=== PATIENT | female | born 1945 | race Caucasian/White ===

== ENCOUNTER 2016-05-07 13:55 | Outpatient (CLI) | payer MEDICARE, MEDICAID | END 2016-05-07 13:56 | disposition home or self-care (01) | DX: E11.9 Type 2 diabetes mellitus without complications (principal) ==

== ENCOUNTER 2016-10-21 11:12 | Outpatient (CLI) | payer MEDICARE, MEDICAID ==
--- NOTE | 2016-10-21 13:23 | XRAY Report ---
THREE-VIEW CERVICAL SPINE: 10/21/2016 CLINICAL INDICATION: Neck pain. FINDINGS: AP, lateral, odontoid views of the cervical spine demonstrate moderate degenerative disc a nd facet disease. There is no evidence of fracture or subluxation. The prevertebral soft tissues ar e unremarkable. IMPRESSION: MODERATE DEGENERATIVE CHANGES. JOB #: [id number] EXT JOB #:[id number]
== END 2016-10-21 11:13 | disposition home or self-care (01) ==
LOC: DI 11:12
PROVIDERS: ATTEND Family Medicine
DX: M50.30 Other cervical disc degeneration, unspecified cervical region (principal); M47.892 Other spondylosis, cervical region
CPT/HCPCS: 72040

== ENCOUNTER 2016-11-04 08:31 | Day surgery (SDC) | payer MEDICARE, MEDICAID ==
[2016-11-04] MEDS ORDERED: PHENYLEPHRINE 2.5% OPHTH 2 ML DROPS ONE (08:44)
[2016-11-04] MEDS ORDERED: LACTATED RINGERS 500 ML IV ONE (08:53)
[2016-11-04] MEDS ORDERED: CYCLOPENTOLATE 1% OPHTH DROPS 2 ML OPTH ONE (09:06)
[2016-11-04] MEDS ORDERED: PROPARACAINE 0.5% OPHTH DROPS 15 ML OPTH ONE ×2 (09:06→09:43)
[2016-11-04] MEDS ORDERED: KETOROLAC 0.45% OPHTH DROPS OPTH ONE (09:06)
[2016-11-04] MEDS ORDERED: PHENYLEPHRINE 2.5% OPHTH 2 ML DROPS OPTH ONE (09:06)
[2016-11-04] MEDS ORDERED: BRIMONIDINE 0.2% OPHTH DROPS 5 ML OPTH ONE (09:41)
[2016-11-04] MEDS ORDERED: EPINEPHrine 1 MG/ML AMP IVP ONE (09:42)
[2016-11-04] MEDS ORDERED: TRIAMCIN/MOXIFLOX/VANCO 1 ML VIAL IO ONE ×2 (09:43)
[2016-11-04] MEDS ORDERED: CHONDR SULF/HYALURONATE SYRINGE IO ONE (09:43)
[2016-11-04] MEDS ORDERED: BSS/LIDOCAINE/EPINEPHRINE 1 ML SYRINGE IO ONE ×2 (09:43)
[2016-11-04] MEDS ORDERED: TIMOLOL 0.5% OPHTH DROPS OPTH ONE (09:43)
[2016-11-04] MEDS ORDERED: MIDAZOLAM 2 MG/2 ML VIAL IVP ONE (09:50)
[2016-11-04 10:37] VITALS: BP 135/58
--- NOTE | 2016-11-06 02:56 | OPERATIVE REPORT ---
DATE OF SURGERY: 11/04/2016 00:00:00 PREOPERATIVE DIAGNOSIS: Visually significant cataract, left eye. This is her first cataract surgery . POSTOPERATIVE DIAGNOSIS: Visually significant cataract, left eye. This is her first cataract surger y. PROCEDURE: Phacoemulsification and posterior chamber intraocular lens implant, left eye. SURGEON: Bobby Nova MD ANESTHESIA: Monitored anesthesia care. COMPLICATIONS: None. OPERATIVE INDICATIONS: This is a 71-year-old woman with progressive vision loss in the left eye due to 2+ nuclear sclerotic cataract. Best corrected visual acuity was 20/50 in her left eye. Indicatio ns for surgery are overall decrease in vision, difficulty reading, difficulty with glare or bright li ghts, and she does not drive. She was consented at length concerning the risks and benefits of catara ct surgery, after which she expressed a desire to proceed with surgery. OPERATIVE PROCEDURE: The patient was taken into operating room #2 and placed under monitored anesthe roselyn care. A surgical time-out was conducted, confirming correct the patient, correct procedure, and c orrect surgical site. She was given topical anesthesia and then prepped and draped in the usual steri le fashion. The eye was entered at the 6- and 3-o'clock positions. Intracameral shugarcaine was injected into the anterior chamber, followed by Viscoat. A continuous tear curvilinear capsulorrhexis was performed. T he nucleus was hydrodissected and phacoemulsified. The cortex was evacuated using automated infusion aspiration. Provisc was injected into the capsular bag and a 21.0-diopter intraocular lens inserted i nto the bag. Approximately 0.7 mL of a mixture of triamcinolone, moxifloxacin, and vancomycin was in jected subconjunctivally in the superior quadrant for infection and inflammation prophylaxis. I/A was used to evacuate the viscoelastic materials. The eye was inflated to physiologic pressure using a ba lanced salt solution and found to be watertight. The patient was taken from the operating room in good condition and given postoperative instructions. JOB #: [id number] EXT JOB #:[id number]
== END 2016-11-04 08:32 | disposition home or self-care (01) ==
LOC: SDS 08:31
PROVIDERS: ATTEND Ophthalmology
PROC: 08RK3JZ Replacement of Left Lens with Synthetic Substitute, Percutaneous Approach (ICD-10-PCS; principal; 2016-11-04 09:30)
DX: E11.36 Type 2 diabetes mellitus with diabetic cataract (principal); H25.12 Age-related nuclear cataract, left eye; F41.9 Anxiety disorder, unspecified; J44.9 Chronic obstructive pulmonary disease, unspecified; F17.200 Nicotine dependence, unspecified, uncomplicated; F20.9 Schizophrenia, unspecified; Z79.84 Long term (current) use of oral hypoglycemic drugs
CPT/HCPCS: 66984; A9270; V2632

== ENCOUNTER 2017-05-17 08:00 | Outpatient (CLI) | payer MEDICARE, MEDICAID ==
[2017-05-17 18:57] LABS: BASOPHILS # (AUTO) 0.1 10^3/uL (0.0-0.1); BASOPHILS % (AUTO) 0.6 %; EOSINOPHILS # (AUTO) 0.1 10^3/uL (0.0-0.7); EOSINOPHILS % (AUTO) 0.6 %; HGB - HEMOGLOBIN 14.7 g/dL (12.0-16.0); LYMPHOCYTES # (AUTO) 3.1 10^3/uL (1.5-3.5); LYMPHOCYTES % (AUTO) 31.6 %; MEAN CORPUSCULAR HEMOGLOBIN 31.5 pg (27.0-31.0); MEAN CORPUSCULAR HGB CONC 33.4 g/dL (32.0-36.0); MEAN CORPUSCULAR VOLUME 94.4 fL (81.0-99.0); MEAN PLATELET VOLUME 8.8 fL (7.9-10.8); MONOCYTES # (AUTO) 0.6 10^3/uL (0.0-1.0); MONOCYTES % (AUTO) 5.7 %; NEUTROPHILS % (AUTO) 61.5 %; PLT - PLATELET COUNT 248 10^3/uL (130-450); RED BLOOD COUNT 4.67 10^6/uL (4.20-5.40); RED CELL DISTRIBUTION WIDTH 12.5 % (12.0-15.0); WHITE BLOOD COUNT 9.8 x10^3/uL (4.8-10.8)
[2017-05-17 19:12] LABS: HB2 TOTAL 15.7 g/dL; HEMOGLOBIN A1C 1.18 g/dL
[2017-05-17 19:53] LABS: ALBUMIN 4.2 g/dL (3.2-5.5); ALBUMIN/GLOBULIN RATIO 1.5 (1.0-2.2); ALKALINE PHOSPHATASE 81 IU/L (42-121); ALT ALANINE AMINOTRANSFERASE 17 IU/L (10-60); AST ASPARTATE AMINOTRANSFERASE 20 IU/L (10-42); BILIRUBIN,TOTAL 0.5 mg/dL (0.2-1.0); BUN - BLOOD UREA NITROGEN 6 mg/dL (6-20); CALCIUM 9.4 mg/dL (8.5-10.3); CARBON DIOXIDE - CO2 25 mmol/L (21-32); CHLORIDE 98 mmol/L (101-111); CHOL/HDL RATIO 3.8 (<4.4); CHOLESTEROL 169 mg/dL; CREATININE 0.6 mg/dL (0.4-1.0); GFR - MDRD 99 (>89); GLUCOSE 200 mg/dL (70-100); HDL CHOLESTEROL 45 mg/dL; LDL CHOLESTEROL,CALCULATED 84 mg/dL; LDL/HDL RATIO 1.9 (<4.4); SODIUM 137 mmol/L (135-145); VLDL CHOLESTEROL 40 mg/dL
== END 2017-05-17 08:01 | disposition home or self-care (01) ==
LOC: LAB.N 08:00
PROVIDERS: ATTEND Family Medicine
DX: E55.9 Vitamin D deficiency, unspecified (principal); F20.9 Schizophrenia, unspecified; E11.9 Type 2 diabetes mellitus without complications
CPT/HCPCS: 36415; 80053; 80061; 83036; 83721; 85025

== ENCOUNTER 2017-09-08 09:31 | Outpatient (CLI) | payer MEDICARE, MEDICAID ==
[2017-09-08 12:49] LABS: CALCIUM 9.2 mg/dL (8.5-10.3); CREATININE 0.9 mg/dL (0.4-1.0)
[2017-09-08 13:03] LABS: HEMOGLOBIN A1C 0.98 g/dL; HEMOGLOBIN A1C % 8.1 % (4.6-6.2)
== END 2017-09-08 09:32 ==
LOC: LAB.N 09:31
PROVIDERS: ATTEND Family Medicine
DX: E11.9 Type 2 diabetes mellitus without complications (principal)
CPT/HCPCS: 36415; 80048; 83036

== ENCOUNTER 2017-12-13 11:51 | Outpatient (CLI) | payer MEDICARE, MEDICAID ==
[2017-12-13 19:04] LABS: CALCIUM 8.8 mg/dL (8.5-10.3); CREATININE 0.7 mg/dL (0.4-1.0)
[2017-12-13 19:10] LABS: HB2 TOTAL 13.6 g/dL; HEMOGLOBIN A1C 0.82 g/dL; HEMOGLOBIN A1C % 7.7 % (4.6-6.2)
== END 2017-12-13 11:52 | disposition home or self-care (01) ==
LOC: LAB.N 11:51
PROVIDERS: ATTEND Family Medicine
DX: E11.9 Type 2 diabetes mellitus without complications (principal)
CPT/HCPCS: 36415; 80048; 83036

== ENCOUNTER 2018-04-21 10:37 | Outpatient (CLI) | payer MEDICARE, MEDICAID ==
[2018-04-21 19:29] LABS: CALCIUM 8.5 mg/dL (8.5-10.3); CREATININE 0.8 mg/dL (0.4-1.0)
[2018-04-21 19:57] LABS: HB2 TOTAL 15.1 g/dL; HEMOGLOBIN A1C 0.81 g/dL; HEMOGLOBIN A1C % 7.1 % (4.6-6.2)
== END 2018-04-21 23:59 | disposition home or self-care (01) ==
LOC: LAB.N 10:37
PROVIDERS: ATTEND Family Medicine
DX: E11.9 Type 2 diabetes mellitus without complications (principal)
CPT/HCPCS: 36415; 80048; 83036

== ENCOUNTER 2018-05-17 09:30 | Outpatient (CLI) | payer MEDICARE, MEDICAID ==
--- NOTE | 2018-05-18 08:41 | Mammography Report ---
Reason: SCREENING MAMMOGRAM FOR BREAST CANCER Procedure Date: 05/17/2018 Accession Number: [id number] / [id number] Procedure: MGN - Screening Mammo Dig Bilat CPT Code: FULL RESULT: EXAM: Screening Mammo Dig Bilat DATE: 05/17/2018 9:57 AM CLINICAL HISTORY: Screening encounter. History of late childbearing. TECHNIQUE: Bilateral CC and MLO views were obtained. COMPARISON: 10/04/2014 07/19/2008. FINDINGS: The breasts demonstrate scattered fibroglandular densities bilaterally. There are coarse typically benign calcifications. No suspicious masses, clustered microcalcifications, or regions of architectural distortion are identified. IMPRESSION: Benign findings RECOMMENDATION: Routine annual screening unless otherwise clinically indicated. BIRADS CATEGORY 2: Benign findings STANDARD QUALIFYING STATEMENTS: 1. This examination was reviewed with the aid of Computer-Aided Detection (CAD). 2. A negative or benign imaging report should not preclude biopsy if clinically suspicious findings are present. 3. Dense breasts may obscure an underlying neoplasm. 4. This examination was reviewed without the aid of 3D breast imaging (tomosynthesis).
== END 2018-05-17 09:31 | disposition home or self-care (01) ==
LOC: DI.N 09:30
PROVIDERS: ATTEND Family Medicine
DX: Z12.31 Encounter for screening mammogram for malignant neoplasm of breast (principal)
CPT/HCPCS: 77067

== ENCOUNTER 2018-09-30 09:37 | Emergency (ER) | payer MEDICARE, MEDICAID ==
--- NOTE | 2018-09-30 10:28 | ED Physician Documentation ---
PD HPI FEMALE - Stated complaint Stated Complaint: FEMALE - Chief complaint Chief Complaint: General - History obtained from History obtained from: Patient - History of Present Illness Timing - onset: How many weeks ago (3) Timing - duration: Weeks (3) Timing - details: Gradual onset, Still present Associated symptoms: Dysuria, Urinary frequency, Other (vaginal itching) Similar symptoms before: Has not had sx before Recently seen: Clinic - Additional information Additional information: 73 y/o female with weeks of vaginal itching complains of vaginal itching and small bumps in the skin. She has some urinary symptoms as well. 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 : None HEENT: Other Psych: Schizophrenia Musculoskeletal: None Derm: None - Past Surgical History Past Surgical History: Yes /WORK ORDER SORTING CLERK: Hysterectomy - Present Medications Home Medications: Ambulatory Orders Medication Instructions Recorded Confirmed Lisinopril 5 mg PO DAILY 01/19/16 09/30/18 Metformin HCl [Fortamet] 500 mg PO BID 01/19/16 09/30/18 clonazePAM [Clonazepam] 0.5 mg PO PRN PRN 01/19/16 09/30/18 risperiDONE [RisperDAL] 4 mg PO DAILY 01/19/16 09/30/18 Fluconazole [Diflucan] 150 mg PO ONCE #1 tablet 09/30/18 - Allergies Allergies/Adverse Reactions: Allergies Allergy/AdvReac Type Severity Reaction Status Date / Time No Known Drug Allergies Allergy Verified 09/30/18 09:44 - Social History Does the pt smoke?: Yes Smoking Status: Current every day smoker Does the pt drink ETOH?: No Does the pt have substance abuse?: No - Immunizations Immunizations are current?: Yes - POLST Patient has POLST: No PD ED PE NORMAL - Vitals Vital signs reviewed: Yes (tachy and hypertensive ) - General General: No acute distress, Well developed/nourished - HEENT HEENT: Atraumatic, Other (The left eye is deviated laterally ) - Respiratory Respiratory: No respiratory distress - Female Female : Budget 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 There is no discharge. There are no blisters or pustules. The hair follicles are prominent. ) - Derm Derm: Normal color, Warm and dry, No rash - Extremities Extremities: No deformity, No edema - Neuro Neuro: No motor deficit, No sensory deficit, Normal speech Eye Opening: Spontaneous Motor: Obeys Commands Verbal: Oriented GCS Score: 15 - Psych Psych: Normal mood, Normal affect Results - Vitals Vitals: Vital Signs - 24 hr 09/30/18 09/30/18 09/30/18 09:42 11:35 11:38 Temperature 37.1 C 36.8 C Heart Rate 109 H 86 80 Respiratory 18 16 24 Rate Blood Pressure 145/68 H 135/63 H 136/68 H O2 Saturation 98 100 96 Oxygen O2 Source Room air - Labs Labs: Microbiology 09/30/18 10:20 LEIGH Preparation - Final Other - Vaginal Laboratory Tests 09/30/18 10:37 Urine Color YELLOW Urine Clarity CLEAR Urine pH 5.0 Ur Specific [place] <=1.005 Urine Protein NEGATIVE Urine Glucose (UA) NEGATIVE Urine Ketones NEGATIVE Urine Occult Blood NEGATIVE Urine Nitrite NEGATIVE Urine Bilirubin NEGATIVE Urine Urobilinogen 0.2 (NORMAL) Ur Leukocyte Esterase NEGATIVE Ur Microscopic Review NOT INDICATED Urine Culture Comments NOT INDICATED PD MEDICAL DECISION MAKING - ED course Complexity details: reviewed results, re-evaluated patient, considered d ifferential, d/w patient ED course: 73 y/o female schizophrenic with vaginal itching has enough itching that she has scratched a christiano on the vulva. She has negative swab of the area. Her presentation is consistent with yeast vaginitis and she is treated with a single dose of diflucan. Departure - Departure Disposition: 01 Home, Self Care Clinical Impression: Yeast vaginitis Condition: Stable Instructions: ED Vaginal Infec Fungal Caron Follow-Up: Paula Tanner ARNP [Primary Care Provider] - Prescriptions: Fluconazole [Diflucan] 150 mg PO ONCE #1 tablet
[2018-09-30 10:49] LABS: BILIRUBIN,URINE NEGATIVE (NEGATIVE); GLUCOSE, URINE (UA) NEGATIVE (NEGATIVE); KETONES,URINE (UA) NEGATIVE (NEGATIVE); LEUKOCYTE ESTERASE, URINE NEGATIVE (NEGATIVE); NITRITE,URINE NEGATIVE (NEGATIVE); OCCULT BLOOD,URINE NEGATIVE (NEGATIVE); PROTEIN,URINE NEGATIVE (NEGATIVE); UROBILINOGEN,URINE 0.2 (NORMAL) E.U./dL (NORMAL)
[2018-09-30 10:50] LABS: CLARITY,URINE CLEAR (CLEAR)
[2018-09-30 11:39] VITALS: BP 136/68
[2018-09-30] MEDS ORDERED: FLUCONAZOLE 100 MG TABLET PO STA (11:45)
== END 2018-09-30 11:52 | disposition home or self-care (01) ==
LOC: ED 09:37
DX: B37.3 Candidiasis of vulva and vagina (principal); I10 Essential (primary) hypertension; E11.9 Type 2 diabetes mellitus without complications; Z79.84 Long term (current) use of oral hypoglycemic drugs; F20.9 Schizophrenia, unspecified; F17.200 Nicotine dependence, unspecified, uncomplicated
CPT/HCPCS: 81003; 87220; 99283; A9270; 81001; 87086

== ENCOUNTER 2018-12-28 10:36 | Outpatient (CLI) | payer MEDICARE, MEDICAID ==
[2018-12-28 13:38] LABS: ALBUMIN/GLOBULIN RATIO 1.4 (1.0-2.2); ALKALINE PHOSPHATASE 50 IU/L (42-121); ALT ALANINE AMINOTRANSFERASE 12 IU/L (10-60); AST ASPARTATE AMINOTRANSFERASE 15 IU/L (10-42); BILIRUBIN,TOTAL 0.5 mg/dL (0.2-1.0); BUN - BLOOD UREA NITROGEN 6 mg/dL (6-20); CALCIUM 8.8 mg/dL (8.5-10.3); CARBON DIOXIDE - CO2 28 mmol/L (21-32); CHLORIDE 103 mmol/L (101-111); CHOL/HDL RATIO 3.1 (<4.4); CHOLESTEROL 141 mg/dL; CREATININE 0.6 mg/dL (0.4-1.0); GFR - MDRD 98 (>89); GLUCOSE 225 mg/dL (70-100); HDL CHOLESTEROL 46 mg/dL; LDL CHOLESTEROL,CALCULATED 70 mg/dL; LDL/HDL RATIO 1.5 (<4.4); SODIUM 138 mmol/L (135-145); TOTAL PROTEIN 6.9 g/dL (6.7-8.2); VLDL CHOLESTEROL 25 mg/dL
[2018-12-28 14:25] LABS: HB2 TOTAL 13.4 g/dL; HEMOGLOBIN A1C 0.71 g/dL
== END 2018-12-28 23:59 | disposition home or self-care (01) ==
LOC: LAB.N 10:36
PROVIDERS: ATTEND Family Medicine
DX: E11.9 Type 2 diabetes mellitus without complications (principal)
CPT/HCPCS: 36415; 80053; 80061; 83036; 83721

== ENCOUNTER 2019-06-08 17:59 | Outpatient (CLI) | payer MEDICARE, MEDICAID | END 2019-06-08 18:00 | disposition critical access hospital (66) | LOC: EMS 17:59 | PROVIDERS: ATTEND Surgery | DX: R07.0 Pain in throat (principal) | CPT/HCPCS: A0425; A0429 ==

== ENCOUNTER 2019-06-08 18:23 | Emergency (ER) | payer MEDICARE, MEDICAID ==
[2019-06-08] MEDS ORDERED: SODIUM CHLORIDE 0.9% 1,000 ML IV ONE (18:30)
--- NOTE | 2019-06-08 18:33 | ED Physician Documentation ---
PD HPI ABD PAIN - Stated complaint Stated Complaint: SORE THROAT - History obtained from History obtained from: Patient, EMS - History of Present Illness Timing - onset: Other (73-year-old woman with history of schizophrenia presents with 2 weeks of sore throat and diffuse abdominal pain. Her abdomen looks distended but she feels like that is her normal shape. She mostly complains about her throat, it hurts all day every day and with swallowing. She feels like her organs are off. She denies nausea, Weight changes or problems with bowel movements.) Review of Systems Constitutional: reports: Fatigue. denies: Fever, Chills Nose: denies: Rhinorrhea / runny nose Throat: reports: Sore throat Cardiac: denies: Chest pain / pressure, Palpitations Respiratory: denies: Dyspnea, Cough GI: reports: Abdominal Pain, Nausea. 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 : None HEENT: Other Psych: Schizophrenia Musculoskeletal: None Derm: None - Past Surgical History Past Surgical History: Yes /ASSOCIATE CURATOR: Hysterectomy - Present Medications Home Medications: Ambulatory Orders Medication Instructions Recorded Confirmed Metformin HCl [Fortamet] 500 mg PO BID 01/19/16 09/30/18 clonazePAM [Clonazepam] 0.5 mg PO PRN PRN 01/19/16 09/30/18 lisinopriL [Lisinopril] 5 mg PO DAILY 01/19/16 09/30/18 risperiDONE [RisperDAL] 4 mg PO DAILY 01/19/16 09/30/18 Fluconazole [Diflucan] 150 mg PO ONCE #1 tablet 09/30/18 - Allergies Allergies/Adverse Reactions: Allergies Allergy/AdvReac Type Severity Reaction Status Date / Time Penicillins Allergy Unknown Verified 06/08/19 18:33 procaine [From Novocain] Allergy Unknown Verified 06/08/19 18:33 vaccinations Allergy Unknown Uncoded 06/08/19 18:33 - Social History Does the pt smoke?: Yes Smoking Status: Current every day smoker Does the pt drink ETOH?: No Does the pt have substance abuse?: No - Immunizations Immunizations are current?: Yes - POLST Patient has POLST: No PD ED PE NORMAL - Vitals Vital signs reviewed: Yes - General General: Alert and oriented X 3, No acute distress - HEENT HEENT: Pharynx benign, Other (She is blind in the left eye). No: Dentition benign (Poor dentition throughout) - Neck Neck: Supple, no meningeal sign, No bony TTP - Cardiac Cardiac: RRR, No murmur - Respiratory Respiratory: No respiratory distress, Clear bilaterally - Abdomen Abdomen: Normal bowel sounds, Soft, Other (Seems protuberant and distended but nontender) - Back Back: No CVA TTP, No spinal TTP - Derm Derm: Normal color, Warm and dry - Extremities Extremities: No edema, No calf tenderness / cord - Neuro Neuro: Alert and oriented X 3, Normal speech Results - Vitals Vitals: Vital Signs - 24 hr 06/08/19 18:31 Temperature 36.1 C L Heart Rate 77 Respiratory 20 Rate Blood Pressure 140/58 H O2 Saturation 96 Oxygen O2 Source Room air - Labs Labs: Laboratory Tests 06/08/19 06/08/19 06/08/19 18:42 18:47 18:52 WBC 9.9 RBC 4.50 Hgb 14.4 Hct 42.8 MCV 95.1 MCH 32.0 H MCHC 33.6 RDW 11.9 L Plt Count 242 MPV 10.3 Neut # (Auto) 5.0 Lymph # (Auto) 4.2 H [place] # (Auto) 0.6 Eos # (Auto) 0.1 Baso # (Auto) 0.1 Absolute Nucleated RBC 0.00 Nucleated RBC % 0.0 Sodium Potassium Chloride Carbon Dioxide Anion Gap BUN Creatinine Estimated GFR (MDRD) Glucose Calcium Total Bilirubin AST ALT Alkaline Phosphatase Total Protein Albumin Globulin Albumin/Globulin Ratio Lipase Urine Color YELLOW Urine Clarity CLEAR Urine pH 5.5 Ur Specific [place] <=1.005 Urine Protein NEGATIVE Urine Glucose (UA) NEGATIVE Urine Ketones 15 H Urine Occult Blood TRACE-INTA Urine Nitrite NEGATIVE Urine Bilirubin NEGATIVE Urine Urobilinogen 0.2 (NORMAL) Ur Leukocyte Esterase NEGATIVE Ur Microscopic Review NOT INDICATED Urine Culture Comments NOT INDICATED Group A Strep Rapid Negative 06/08/19 18:52 WBC RBC Hgb Hct MCV MCH MCHC RDW Plt Count MPV Neut # (Auto) Lymph # (Auto) [place] # (Auto) Eos # (Auto) Baso # (Auto) Absolute Nucleated RBC Nucleated RBC % Sodium 139 Potassium 3.2 L Chloride 97 L Carbon Dioxide 27 Anion Gap 15.0 H BUN 5 L Creatinine 0.7 Estimated GFR (MDRD) 82 L Glucose 135 H Calcium 9.1 Total Bilirubin 0.8 AST 20 ALT 14 Alkaline Phosphatase 56 Total Protein 7.6 Albumin 4.7 Globulin 2.9 Albumin/Globulin Ratio 1.6 Lipase 30 Urine Color Urine Clarity Urine pH Ur Specific [place] Urine Protein Urine Glucose (UA) Urine Ketones Urine Occult Blood Urine Nitrite Urine Bilirubin Urine Urobilinogen Ur Leukocyte Esterase Ur Microscopic Review Urine Culture Comments Group A Strep Rapid - Rads (name of study) CT soft tissue neck Radiology: EMP read contemporaneously (Multifocal advanced poor dentition, laterally rotated left globe, cervical spondylosis) CT of the abdomen and pelvis Radiology: EMP read contemporaneously (Diverticulosis and cholelithiasis without acute disease) PD MEDICAL DECISION MAKING - ED course ED course: This is a schizophrenic 73-year-old woman who presents with 2 weeks of throat pain, and some abdominal unease. Her examination shows poor dentition but her oropharynx is otherwise fairly normal looking, supple neck. Benign belly. Work-up demonstrates poor dentition, gallstones, chronic findings etc. but no acute clear cause. Watchful waiting and primary care follow-up were advised. Departure - Departure Disposition: 01 Home, Self Care Clinical Impression: Abdominal discomfort, Sore throat Condition: Good Record reviewed to determine appropriate education?: Yes Instructions: ED Pharyngitis Viral Report Pending, ED Abdominal Pain Unkn Cause Comments: Your work-up today was negative, you do have poor dentition but no evidence of strep throat or other active infection in the throat itself. You have ga llstones, but it does not look like that would be bothering you right now. Return for new or worsening symptoms and follow-up with your primary care physician, next available appointment. Your blood pressure was elevated today on check into the emergency department. This does not mean that you have hypertension, it is a common phenomenon to come to the emergency department and have elevated blood pressure. I recommend that you see your primary care physician within the week to have it rechecked when you are feeling better.
[2019-06-08] MEDS ORDERED: IOVERSOL 320 100 ML VIAL IVP ONE ×2 (18:44→19:55)
[2019-06-08] MEDS ORDERED: metFORMIN 500 MG TABLET PO STA (18:47)
[2019-06-08 18:55] LABS: BILIRUBIN,URINE NEGATIVE (NEGATIVE); GLUCOSE, URINE (UA) NEGATIVE (NEGATIVE); KETONES,URINE (UA) 15 mg/dL (NEGATIVE); LEUKOCYTE ESTERASE, URINE NEGATIVE (NEGATIVE); NITRITE,URINE NEGATIVE (NEGATIVE); OCCULT BLOOD,URINE TRACE-INTA (NEGATIVE); PH,URINE 5.5 PH (5.0-7.5); PROTEIN,URINE NEGATIVE (NEGATIVE); UROBILINOGEN,URINE 0.2 (NORMAL) E.U./dL (NORMAL)
[2019-06-08 18:56] LABS: BASOPHILS # (AUTO) 0.1 10^3/uL (0.0-0.1); BASOPHILS % (AUTO) 0.5 %; EOSINOPHILS # (AUTO) 0.1 10^3/uL (0.0-0.7); EOSINOPHILS % (AUTO) 0.7 %; HGB - HEMOGLOBIN 14.4 g/dL (12.0-16.0); LYMPHOCYTES # (AUTO) 4.2 10^3/uL (1.5-3.5); LYMPHOCYTES % (AUTO) 42.7 %; MEAN CORPUSCULAR HGB CONC 33.6 g/dL (32.0-36.0); MEAN CORPUSCULAR VOLUME 95.1 fL (81.0-99.0); MEAN PLATELET VOLUME 10.3 fL (7.9-10.8); MONOCYTES # (AUTO) 0.6 10^3/uL (0.0-1.0); MONOCYTES % (AUTO) 5.5 %; NEUTROPHILS % (AUTO) 50.3 %; PLT - PLATELET COUNT 242 10^3/uL (130-450); RED CELL DISTRIBUTION WIDTH 11.9 % (12.0-15.0); WHITE BLOOD COUNT 9.9 x10^3/uL (4.8-10.8)
[2019-06-08 18:59] LABS: CLARITY,URINE CLEAR (CLEAR)
[2019-06-08 19:02] LABS: RAPID STREP SCREEN Negative (Negative)
[2019-06-08 19:10] LABS: ALBUMIN 4.7 g/dL (3.2-5.5); ALBUMIN/GLOBULIN RATIO 1.6 (1.0-2.2); BILIRUBIN,TOTAL 0.8 mg/dL (0.2-1.0); CALCIUM 9.1 mg/dL (8.5-10.3); CREATININE 0.7 mg/dL (0.4-1.0); TOTAL PROTEIN 7.6 g/dL (6.7-8.2)
--- NOTE | 2019-06-08 20:27 | CT Report ---
Reason: abdominal pain Procedure Date: 06/08/2019 Accession Number: [id number] / [id number] Procedure: CT - Abdomen/Pelvis W CPT Code: Final Report FULL RESULT: EXAM: CT ABDOMEN AND PELVIS EXAM DATE: 06/08/2019 07:50 PM. CLINICAL HISTORY: Abdominal pain for 1 week. COMPARISONS: ABDOMEN/PELVIS W/O 03/26/2015 1:17 PM. TECHNIQUE: Routine helical CT imaging was performed through the abdomen and pelvis. IV contrast: 60 cc Optiray 320. Enteric contrast: No. Reconstructions: Coronal and sagittal. In accordance with CT protocol optimization, one or more of the following dose reduction techniques were utilized for this exam: automated exposure control, adjustment of mA and/or KV based on patient size, or use of iterative reconstructive technique. FINDINGS: Imaged chest: There is right lower lobe scarring. Liver: Unremarkable. Gallbladder: Large lamellated gallstone in gallbladder. No gall bladder wall thickening. Biliary: Unremarkable. Pancreas: Unremarkable. Spleen: Unremarkable. Adrenal glands: Unremarkable. Kidneys: Unremarkable. Urinary bladder: Unremarkable. Reproductive organs: Atrophic uterus is otherwise grossly unremarkable. Bowel: Sigmoid and descending colonic diverticulosis without obvious evidence of diverticulitis. Stomach: Unremarkable. Appendix: Unremarkable. Miscellaneous: No free fluid. No extraluminal gas. Aorta: Mild aortic atherosclerosis. Normal in caliber. Lymph nodes: No pathologically enlarged lymph nodes identified. Bones: Old compression fracture of the T11 vertebral body, similar to prior. No suspicious osseous lesions. Sidewalls: Unremarkable. IMPRESSION: 1. No acute findings to explain patient's symptoms. 2. Colonic diverticulosis, no diverticulitis. 3. Gallstone. No CT evidence of acute cholecystitis. RADIA
--- NOTE | 2019-06-08 20:27 | CT Report ---
Reason: neck pain Procedure Date: 06/08/2019 Accession Number: [id number] / [id number] Procedure: CT - SOFT TISSUE NECK W CPT Code: Preliminary Report FULL RESULT: EXAM: CT SOFT TISSUE NECK WITH CONTRAST. EXAM DATE: 06/08/2019 07:50 PM. HISTORY: Neck pain. Trouble swallowing. COMPARISONS: Plain film cervical spine 10/21/2016. TECHNIQUE: Routine soft tissue neck CT protocol with contrast. Reconstructions: Coronal and sagittal. IV contrast: 40 cc OPTIRAY 320. In accordance with CT protocol optimization, one or more of the following dose reduction techniques were utilized for this exam: automated exposure control, adjustment of mA and/or KV based on patient size, or use of iterative reconstructive technique. Findings: Relevant images are indicated (image number, series number). Soft tissue neck demonstrates no suspicious mass, fluid collection, no suspicious adenopathy. Upper esophagus is mildly patulous/air-filled but otherwise unremarkable. Thyroid not enlarged, airway patent. Larynx unremarkable, vallecula clear, epiglottis negative, piriform sinuses unremarkable. Oral cavity demonstrates no suspicious enhancing lesion. Bilateral submandibular glands, bilateral parotid glands appear unremarkable. There is no differentially enhancing mass seen. The patient is partially edentulous with multifocal poor dentition. Multifocal loss of crowns, dental caries present. Apical cyst left maxillary first molar (59, 9) Limited evaluation intracranial contents are unremarkable. Paranasal sinuses, mastoid air cells are unremarkable. Orbital contents negative however the left globe demonstrates post lens replacement surgery, the left globe is also prominently rotated laterally (30, 7), compared to the contralateral globe. Moderate multilevel cervical spondylosis, reversal of the normal cervical lordotic curve. No suspicious bony lesions. Impressions: 1. No suspicious mass, fluid collection, no suspicious adenopathy of the soft tissue neck. 2. Multifocal advanced poor dentition as described with apical cyst left maxillary first molar. Multifocal dental caries present. Correlate with dental imaging. 3. Laterally rotated left globe, the globus post left lens replacement surgery, relative to the right globe, correlate clinically. 4. Moderate multilevel cervical spondylosis. RADIA
[2019-06-08] MEDS ORDERED: MELOXICAM 7.5 MG TABLET PO STA (20:54)
[2019-06-08 21:11] VITALS: BP 138/75
== END 2019-06-08 21:22 | disposition home or self-care (01) ==
LOC: EDUNIT# → ED 18:23
DX: I10 Essential (primary) hypertension (principal); E11.9 Type 2 diabetes mellitus without complications; F17.200 Nicotine dependence, unspecified, uncomplicated; Z79.84 Long term (current) use of oral hypoglycemic drugs; K08.89 Other specified disorders of teeth and supporting structures
CPT/HCPCS: 36415; 70491; 74177; 80053; 81003; 83690; 85025; 87070; 87430; 96360; 96361; 99284; A9270; Q9967; 81001; 87086

== ENCOUNTER 2019-06-11 08:00 | Outpatient (CLI) | payer MEDICARE, MEDICAID ==
[2019-06-11 18:36] LABS: CALCIUM 9.1 mg/dL (8.5-10.3); CREATININE 0.6 mg/dL (0.4-1.0)
[2019-06-11 19:10] LABS: HEMOGLOBIN A1C 0.71 g/dL; HEMOGLOBIN A1C % 6.8 % (4.6-6.2)
== END 2019-06-11 23:59 | disposition home or self-care (01) ==
LOC: LAB.N 08:00
PROVIDERS: ATTEND Nurse Practitioner Gerontology
DX: E11.9 Type 2 diabetes mellitus without complications (principal)
CPT/HCPCS: 36415; 80048; 83036

== ENCOUNTER 2019-06-16 11:30 | Outpatient (CLI) | payer MEDICARE, MEDICAID | END 2019-06-16 11:31 | disposition critical access hospital (66) | LOC: EMS 11:30 | PROVIDERS: ATTEND Surgery | DX: R10.9 Unspecified abdominal pain (principal); R42 Dizziness and giddiness | CPT/HCPCS: A0425; A0429 ==

== ENCOUNTER 2019-06-16 11:49 | Emergency (ER) | payer MEDICARE, MEDICAID ==
--- NOTE | 2019-06-16 12:02 | ED Physician Documentation ---
PD HPI ABD PAIN - Stated complaint Stated Complaint: ABD PX - History obtained from History obtained from: Patient - History of Present Illness Timing - onset: How many days ago (The patient has had several days to week of feeling dizziness and room spinning with standing up and walking. She denies any focal weakness. She denies any headache. She is also having persistent left lower abdominal sharp pain unchanged with bowel movements or urination. She was seen 8 days ago with similar symptoms of the abdomen. She did not have vertigo at that time but was having throat pain. She denies throat pain now but states she has a dry mouth. She denies any congestion sinus pressure or ear pain.) Timing - details: Gradual onset, Still present, Waxing and waning Associated symptoms: Nausea. No: Fever, Vomiting, Diarrhea, Constipation, Dysuria Similar symptoms before: Has not had sx before (She denies abdominal pain like this prior to 10 days ago.) Recently seen: Emergency Dept (Seen in the emergency department 8 days ago with a CT scan and lab work showing some diverticula without diverticulitis. Incidental gallstones were noted but she was not tender in the upper abdomen. No other acute process. No medications were prescribed.) Review of Systems Constitutional: denies: Fever Ears: denies: Loss of hearing, Drainage/discharge Cardiac: denies: Chest pain / pressure, Palpitations Respiratory: denies: Dyspnea, Cough GI: reports: Abdominal Pain. denies: Nausea, Vomiting, Diarrhea PD PAST MEDICAL HISTORY - Past Medical History Cardiovascular: Hypertension Respiratory: None Endocrine/Autoimmune: Type 2 diabetes GI: None MASSOTHERAPIST: None : None HEENT: Other Psych: Schizophrenia Musculoskeletal: None Derm: None - Past Surgical History Past Surgical History: Yes /MASSOTHERAPIST: Hysterectomy - Present Medications Home Medications: Ambulatory Orders Medication Instructions Recorded Confirmed Metformin HCl [Fortamet] 500 mg PO BID 01/19/16 09/30/18 clonazePAM [Clonazepam] 0.5 mg PO PRN PRN 01/19/16 09/30/18 lisinopriL [Lisinopril] 5 mg PO DAILY 01/19/16 09/30/18 risperiDONE [RisperDAL] 4 mg PO DAILY 01/19/16 09/30/18 Fluconazole [Diflucan] 150 mg PO ONCE #1 tablet 09/30/18 Meloxicam [Mobic] 7.5 mg PO BID PRN #20 tablet 06/08/19 Docusate Sodium 100 mg PO DAILY #20 capsule 06/16/19 Meclizine HCl [Motion Sickness 25 mg PO Q6H PRN #25 tablet 06/16/19 Relief] Naproxen 375 mg PO BID #20 tablet 06/16/19 - Allergies Allergies/Adverse Reactions: Allergies Allergy/AdvReac Type Severity Reaction Status Date / Time Penicillins Allergy Unknown Verified 06/16/19 12:08 procaine [From Novocain] Allergy Unknown Verified 06/16/19 12:08 vaccinations Allergy Unknown Uncoded 06/16/19 12:08 - Social History Does the pt smoke?: Yes Smoking Status: Current every day smoker Does the pt drink ETOH?: No Does the pt have substance abuse?: No - Immunizations Immunizations are current?: Yes - POLST Patient has POLST: No PD ED PE NORMAL - Vitals Vital signs reviewed: Yes - General General: Alert and oriented X 3, No acute distress, Well developed/nourished - HEENT HEENT: EOMI (of right eye; left with prior defect.), Ears normal - Neck Neck: Supple, no meningeal sign, No adenopathy - Cardiac Cardiac: RRR, No murmur - Respiratory Respiratory: Clear bilaterally - Abdomen Abdomen: Normal bowel sounds, Soft, Non distended, No organomegaly, Other (minimally tender left mid abd without guarding/ percussion nor rebound. ) - Female Female : Deferred - Rectal Rectal: Deferred - Back Back: No CVA TTP - Derm Derm: Normal color, Warm and dry, No rash - Neuro Neuro: Alert and oriented X 3, No motor deficit, Normal speech - Psych Psych: No: Normal affect (slightly anxious, and with seeming poor understanding of what I am explaining, as she then asks similar questions ("so what is causing my dizziness?")) Results - Vitals Vitals: Vital Signs - 24 hr 06/16/19 06/16/19 12:09 13:30 Temperature 36.5 C 36.3 C L Heart Rate 70 68 Respiratory 17 16 Rate Blood Pressure 146/74 H 133/77 H O2 Saturation 92 94 Oxygen O2 Source Room air PD MEDICAL DECISION MAKING - ED course Complexity details: reviewed old records (recent visit for abd pain and sore throat. Had labs and CT abd without abn findings. Consider infectious/inflammatory cause of dizziness with recent sore throat/viral illness. ), considered differential (Her abdominal exam is fairly benign with minimal tenderness in the left lower quadrant and no percussion or rebound. She states it is the similar pain she had the last 10 days and she did have a negative CT and labs 8 days ago. I do not see a value added of repeating test at this time. We can treat her empirically with anti-inflammatories and stool softener for possible diverticular irritation. She is not tender in the upper abdomen in the area of the gallbladder. She does describe some vertigo but has a normal ear and nose and throat exam. We can try some meclizine for that.), d/w patient Departure - Departure Disposition: 01 Home, Self Care Clinical Impression: Vertigo, LLQ abdominal pain Condition: Stable Record reviewed to determine appropriate education?: Yes Instructions: ED Abdominal Pain Unkn Cause, ED Vertigo Unspecified Follow-Up: Paula Tanner ARNP [Primary Care Provider] - Prescriptions: Docusate Sodium 100 mg PO DAILY #20 capsule Meclizine HCl [Motion Sickness Relief] 25 mg PO Q6H PRN #25 tablet PRN Reason: Vertigo Naproxen 375 mg PO BID #20 tablet Comments: The position of vertigo is typically an inner ear problem. Try the meclizine twice daily regularly and up to 4 times a day as needed for the dizziness. There may be some inflammation in inner ear so the naproxen twice daily may help with that as well as help with the abdominal pain. Also take a stool softener daily for the abdominal pain in case there is some extra stool buildup (even though you have had regular bowel movements there may still be extra putting pressure on the diverticula causing some inflammation and pain). Stay well-hydrated. Continue usual medications. Recheck with your primary care if not improved over the next several days. Discharge Date/Time: 06/16/19 13:30
[2019-06-16] MEDS ORDERED: MECLIZINE 12.5 MG TABLET PO STA (12:21)
[2019-06-16] MEDS ORDERED: DOCUSATE SODIUM 100 MG CAPSULE PO STA (12:21)
[2019-06-16] MEDS ORDERED: NAPROXEN 250 MG TABLET PO STA (12:21)
[2019-06-16 15:09] VITALS: BP 133/77
== END 2019-06-16 13:30 | disposition home or self-care (01) ==
LOC: EDUNIT# → ED 11:49
DX: R42 Dizziness and giddiness (principal); R10.32 Left lower quadrant pain; E11.9 Type 2 diabetes mellitus without complications; I10 Essential (primary) hypertension; F20.9 Schizophrenia, unspecified; F17.200 Nicotine dependence, unspecified, uncomplicated; Z79.84 Long term (current) use of oral hypoglycemic drugs
CPT/HCPCS: 99283; 99284; A9270

== ENCOUNTER 2019-06-28 06:53 | Outpatient (CLI) | payer MEDICARE, MEDICAID | END 2019-06-28 06:54 | disposition critical access hospital (66) | LOC: EMS 06:53 | PROVIDERS: ATTEND Surgery | DX: R42 Dizziness and giddiness (principal); R11.0 Nausea | CPT/HCPCS: A0425; A0429 ==

== ENCOUNTER 2019-07-27 05:23 | Outpatient (CLI) | payer MEDICARE, MEDICAID | END 2019-07-27 05:24 | disposition critical access hospital (66) | LOC: EMS 05:23 | PROVIDERS: ATTEND Surgery | DX: R06.02 Shortness of breath (principal); R11.0 Nausea; F41.9 Anxiety disorder, unspecified | CPT/HCPCS: A0425; A0429 ==

== ENCOUNTER 2019-07-27 05:40 | Emergency (ER) | payer MEDICARE, MEDICAID ==
--- NOTE | 2019-07-27 05:54 | ED Physician Documentation ---
History of Present Illness - Stated complaint Stated Complaint: SOA - History obtained from History obtained from: Patient, EMS - History of Present Illness Timing: How many days ago (3) - Additonal information Additional information: 73-year-old female with history of schizophrenia has developed some dizziness and lightheadedness that she has had for several weeks. She did have some improvement with use of meclizine she is out of her meclizine now. She does have a cough she has some dizziness and muffled hearing. She is concerned about the possibly of coronavirus because she is nauseated and has had some diarrhea as well as the cough. She states the cough is not much different than her usual she is a smoker.She had a appointment to go see ENT in [place] about her dizziness and the visit has been canceled because of the coronavirus. Review of Systems Constitutional: reports: Chills. denies: Fever, Myalgias Eyes: denies: Decreased vision Ears: reports: Loss of hearing. denies: Ear pain Nose: reports: Rhinorrhea / runny nose, Congestion Throat: denies: Sore throat Cardiac: denies: Chest pain / pressure, Palpitations Respiratory: reports: Cough. denies: Dyspnea GI: reports: Nausea. denies: Abdominal Pain, Vomiting : reports: Incontinent. denies: Dysuria, Frequency Skin: denies: Rash Musculoskeletal: denies: Neck pain, Back pain, Extremity pain Neurologic: reports: Other (dizziness). denies: Generalized weakness, Focal weakness, Numbness PD PAST MEDICAL HISTORY - Past Medical History Cardiovascular: Hypertension Respiratory: None Endocrine/Autoimmune: Type 2 diabetes GI: None ADJUSTMENT CLERK: None : None HEENT: Other Psych: Schizophrenia Musculoskeletal: None Derm: None - Past Surgical History Past Surgical History: Yes /ADJUSTMENT CLERK: Hysterectomy - Present Medications Home Medications: Ambulatory Orders Medication Instructions Recorded Confirmed Metformin HCl [Fortamet] 500 mg PO BID 01/19/16 09/30/18 clonazePAM [Clonazepam] 0.5 mg PO PRN PRN 01/19/16 09/30/18 lisinopriL [Lisinopril] 5 mg PO DAILY 01/19/16 09/30/18 risperiDONE [RisperDAL] 4 mg PO DAILY 01/19/16 09/30/18 Fluconazole [Diflucan] 150 mg PO ONCE #1 tablet 09/30/18 Meloxicam [Mobic] 7.5 mg PO BID PRN #20 tablet 06/08/19 Docusate Sodium 100 mg PO DAILY #20 capsule 06/16/19 Meclizine HCl [Motion Sickness 25 mg PO Q6H PRN #25 tablet 06/16/19 Relief] Naproxen 375 mg PO BID #20 tablet 06/16/19 Azithromycin [Zithromax] 250 mg PO DAILY #4 tablet 07/27/19 Meclizine [Antivert] 25 mg PO Q6H PRN #20 tablet 07/27/19 - Allergies Allergies/Adverse Reactions: Allergies Allergy/AdvReac Type Severity Reaction Status Date / Time Penicillins Allergy Unknown Verified 07/27/19 05:51 procaine [From Novocain] Allergy Unknown Verified 07/27/19 05:51 vaccinations Allergy Unknown Uncoded 07/27/19 05:51 - Social History Does the pt smoke?: Yes Smoking Status: Current every day smoker Does the pt drink ETOH?: No Does the pt have substance abuse?: No - Immunizations Immunizations are current?: Yes - POLST Patient has POLST: No PD ED PE NORMAL - Vitals Vital signs reviewed: Yes (tachy) - General General: No acute distress, Well developed/nourished - HEENT HEENT: Atraumatic, PERRL, EOMI, Pharynx benign, Other (Both TMs are erythematous in the attic with distortion of the landmarks. ) - Neck Neck: Supple, no meningeal sign, No bony TTP - Cardiac Cardiac: RRR, No murmur - Respiratory Respiratory: No respiratory distress, Clear bilaterally - Abdomen Abdomen: Soft, Non tender - Back Back: No CVA TTP, No spinal TTP - Derm Derm: Normal color, Warm and dry, No rash - Extremities Extremities: No deformity - Neuro Neuro: Alert and oriented X 3, automatic beam warper tender 2-12 intact, No motor deficit, No sensory deficit, Normal speech Eye Opening: Spontaneous Motor: Obeys Commands Verbal: Oriented GCS Score: 15 - Psych Psych: Normal mood, Normal affect Results - Vitals Vitals: Vital Signs - 24 hr 07/27/19 07/27/19 07/27/19 05:46 06:08 07:02 Temperature 37 C Heart Rate 101 H 93 90 Respiratory 17 16 17 Rate Blood Pressure 127/63 120/58 L 106/51 L O2 Saturation 94 94 97 Oxygen O2 Source Room air - Labs Labs: Laboratory Tests 07/27/19 07/27/19 07/27/19 05:53 05:53 06:05 WBC 4.1 L RBC 4.25 Hgb 13.7 Hct 39.2 MCV 92.2 MCH 32.2 H MCHC 34.9 RDW 11.9 L Plt Count 167 MPV 9.7 Neut # (Auto) 3.1 Lymph # (Auto) 0.5 L [place] # (Auto) 0.5 Eos # (Auto) 0.0 Baso # (Auto) 0.0 Absolute Nucleated RBC 0.00 Nucleated RBC % 0.0 Sodium 129 L Potassium 3.6 Chloride 93 L Carbon Dioxide 24 Anion Gap 12.0 BUN 9 Creatinine 0.6 Estimated GFR (MDRD) 98 Glucose 207 H Calcium 8.4 L Total Bilirubin 0.9 AST 31 ALT 21 Alkaline Phosphatase 61 Total Protein 7.2 Albumin 4.1 Globulin 3.1 Albumin/Globulin Ratio 1.3 Lipase 33 Urine Color YELLOW Urine Clarity CLEAR Urine pH 6.0 Ur Specific [place] >=1.030 H Urine Protein TRACE Urine Glucose (UA) NEGATIVE Urine Ketones 40 H Urine Occult Blood SMALL H Urine Nitrite NEGATIVE Urine Bilirubin NEGATIVE Urine Urobilinogen 0.2 (NORMAL) Ur Leukocyte Esterase NEGATIVE Urine RBC 0-5 Urine WBC 0-3 Ur Squamous Epith Cells RARE Squamous Urine Bacteria None Seen Urine Casts 0-2 Hyaline Casts Urine Mucus Few Strands Ur Microscopic Review INDICATED Urine Culture Comments NOT INDICATED - Rads (name of study) chest Radiology: Prelim report reviewed (Impression: Stable appearance of the chest without acute cardiopulmonary abnormality.), EMP read indepedently, See rad report PD MEDICAL DECISION MAKING - ED course Complexity details: reviewed old records, reviewed results, re-evaluated patient, considered differential, d/w patient ED course: 73-year-old female with dizziness and nausea has had an issue with vertigo and she has had some improvement with meclizine and is now out of her meclizine. On examination today she appears to have otitis media. In both ears. 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 I suspect her vertigo may be related to otitis. She is administered dexamethasone 10 mg a azithromycin 500 mg and meclizine [address] her on a course of Zithromax and refill her meclizine.1 of her primary concerns today was the possibility of coronavirus and this seems unlikely from the patient's exposure potential. She is swab for COVID 19. The patient will go home and self quarantine we will place her on medications for OM and vertigo. Departure - Departure Disposition: Home, Self Care Clinical Impression: Vertigo Otitis media Qualifiers: Otitis media type: suppurative Chronicity: acute Laterality: bilateral Recurre nce: non-recurrent Spontaneous tympanic membrane rupture: without spontaneous rupture Qualified Code(s): H66.003 - Acute suppurative otitis media without spontaneous rupture of ear drum, bilateral Condition: Stable Instructions: ED Otitis Media Acute Adult, ED Vertigo Unspecified Follow-Up: Paula Tanner ARNP [Credentialed Staff Provider] - Prescriptions: Azithromycin [Zithromax] 250 mg PO DAILY #4 tablet Meclizine [Antivert] 25 mg PO Q6H PRN #20 tablet PRN Reason: Dizziness
[2019-07-27 06:05] LABS: BASOPHILS % (AUTO) 0.2 %; HGB - HEMOGLOBIN 13.7 g/dL (12.0-16.0); LYMPHOCYTES # (AUTO) 0.5 10^3/uL (1.5-3.5); LYMPHOCYTES % (AUTO) 11.5 %; MEAN CORPUSCULAR HEMOGLOBIN 32.2 pg (27.0-31.0); MEAN CORPUSCULAR HGB CONC 34.9 g/dL (32.0-36.0); MEAN CORPUSCULAR VOLUME 92.2 fL (81.0-99.0); MEAN PLATELET VOLUME 9.7 fL (7.9-10.8); MONOCYTES # (AUTO) 0.5 10^3/uL (0.0-1.0); MONOCYTES % (AUTO) 11.5 %; NEUTROPHILS # (AUTO) 3.1 10^3/uL (1.5-6.6); NEUTROPHILS % (AUTO) 76.6 %; PLT - PLATELET COUNT 167 10^3/uL (130-450); RED BLOOD COUNT 4.25 10^6/uL (4.20-5.40); RED CELL DISTRIBUTION WIDTH 11.9 % (12.0-15.0); WHITE BLOOD COUNT 4.1 x10^3/uL (4.8-10.8)
[2019-07-27 06:17] LABS: ALBUMIN 4.1 g/dL (3.2-5.5); ALBUMIN/GLOBULIN RATIO 1.3 (1.0-2.2); BILIRUBIN,TOTAL 0.9 mg/dL (0.2-1.0); CALCIUM 8.4 mg/dL (8.5-10.3); CREATININE 0.6 mg/dL (0.4-1.0); TOTAL PROTEIN 7.2 g/dL (6.7-8.2)
[2019-07-27 06:19] LABS: GLUCOSE, URINE (UA) NEGATIVE (NEGATIVE); KETONES,URINE (UA) 40 mg/dL (NEGATIVE); LEUKOCYTE ESTERASE, URINE NEGATIVE (NEGATIVE); NITRITE,URINE NEGATIVE (NEGATIVE); OCCULT BLOOD,URINE SMALL (NEGATIVE); PROTEIN,URINE TRACE mg/dL (NEGATIVE); UROBILINOGEN,URINE 0.2 (NORMAL) E.U./dL (NORMAL)
[2019-07-27] MEDS ORDERED: DEXAMETHASONE 10 MG/ML VIAL PO STA (06:30)
[2019-07-27] MEDS ORDERED: CHERRY SYRUP 10 ML UDC PO ONE (06:30)
[2019-07-27] MEDS ORDERED: AZITHROMYCIN 250 MG TABLET PO STA (06:30)
[2019-07-27] MEDS ORDERED: MECLIZINE 12.5 MG TABLET PO STA (06:31)
[2019-07-27 06:34] LABS: BACTERIA,URINE None Seen /HPF (None Seen); BILIRUBIN,URINE NEGATIVE (NEGATIVE); CLARITY,URINE CLEAR (CLEAR); ICTOTEST,URINE NEGATIVE; RBC,URINE 0-5 /HPF (0-5); SQUAMOUS EPITHELIAL CELL,UR RARE Squamous (<= Few)
[2019-07-27 06:35] LABS: CASTS, URINE 0-2 Hyaline Casts /LPF; MUCUS,URINE Few Strands
--- NOTE | 2019-07-27 06:59 | XRAY Report ---
Reason: chest pain Procedure Date: 07/27/2019 Accession Number: [id number] / [id number] Procedure: XR - Chest 1 View X-Ray CPT Code: 05248 Final Report FULL RESULT: EXAM: CHEST RADIOGRAPHY EXAM DATE: 07/27/2019 06:52 AM. CLINICAL HISTORY: Chest pain. COMPARISON: CHEST 2 VIEW PA/LAT 01/19/2016 9:12 AM 02/20/2015 11:42 AM. TECHNIQUE: 1 view. FINDINGS: Lungs/Pleura: No significant consolidation, effusion, or definite pneumothorax. Mediastinum: Cardiac silhouette is within normal limits when accounting for lung volumes and technique. Moderate calcific aortic atherosclerosis. Other: Right proximal humeral enchondroma again noted. IMPRESSION: Stable appearance of the chest without acute cardiopulmonary abnormality. RADIA
[2019-07-27 11:22] VITALS: BP 137/84
== END 2019-07-27 11:18 | disposition home or self-care (01) ==
LOC: EDUNIT# → ED 05:40
DX: H66.003 Acute suppurative otitis media without spontaneous rupture of ear drum, bilateral (principal); R42 Dizziness and giddiness; I10 Essential (primary) hypertension; E11.9 Type 2 diabetes mellitus without complications; F17.200 Nicotine dependence, unspecified, uncomplicated; Z79.84 Long term (current) use of oral hypoglycemic drugs
CPT/HCPCS: 36415; 71045; 80053; 81001; 81599; 83690; 85025; 99284; A9270; 81003; 87086

== ENCOUNTER 2019-07-31 08:00 | Outpatient (CLI) | payer MEDICARE, MEDICAID ==
[2019-07-31 16:36] LABS: HGB - HEMOGLOBIN 13.9 g/dL (12.0-16.0); MEAN CORPUSCULAR HEMOGLOBIN 30.8 pg (27.0-31.0); MEAN CORPUSCULAR HGB CONC 33.1 g/dL (32.0-36.0); MEAN CORPUSCULAR VOLUME 93.1 fL (81.0-99.0); MEAN PLATELET VOLUME 10.2 fL (7.9-10.8); RED BLOOD COUNT 4.51 10^6/uL (4.20-5.40); RED CELL DISTRIBUTION WIDTH 11.9 % (12.0-15.0); WHITE BLOOD COUNT 9.9 x10^3/uL (4.8-10.8)
[2019-07-31 16:50] LABS: CALCIUM 9.1 mg/dL (8.5-10.3); CREATININE 0.6 mg/dL (0.4-1.0)
== END 2019-07-31 23:59 | disposition home or self-care (01) ==
LOC: LAB.WCP 08:00
PROVIDERS: ATTEND Family Medicine
DX: R06.09 Other forms of dyspnea (principal)
CPT/HCPCS: 36415; 80048; 83880; 85027

== ENCOUNTER 2019-08-08 08:00 | Outpatient (CLI) | payer MEDICARE, MEDICAID ==
[2019-08-08 13:32] LABS: H. PYLORIS ANTIGEN STL NEGATIVE (Negative)
== END 2019-08-08 23:59 | disposition home or self-care (01) ==
LOC: LAB.R 08:00
PROVIDERS: ATTEND Family Medicine
DX: R19.7 Diarrhea, unspecified (principal)
CPT/HCPCS: 81599; 82274; 83630; 87045; 87046; 87177; 87209; 87329; 87338; 87493

== ENCOUNTER 2019-09-14 12:35 | Outpatient (CLI) | payer MEDICARE, MEDICAID | END 2019-09-14 12:36 | disposition EMS.NT | LOC: EMS 12:35 | PROVIDERS: ATTEND Surgery | DX: F41.9 Anxiety disorder, unspecified (principal) ==

== ENCOUNTER 2020-05-15 10:00 | Outpatient (CLI) | payer MEDICARE, MEDICAID | END 2020-05-15 23:59 | disposition home or self-care (01) | LOC: LAB.N 10:00 | PROVIDERS: ATTEND Nurse Practitioner | DX: B34.9 Viral infection, unspecified (principal); Z20.822 Contact with and (suspected) exposure to COVID-19 | CPT/HCPCS: 87275; 87276 ==

== ENCOUNTER 2020-05-15 10:59 | Outpatient (CLI) | payer MEDICARE, MEDICAID ==
--- NOTE | 2020-05-15 14:53 | XRAY Report ---
PROCEDURE: Chest 2 View X-Ray INDICATIONS: VIRAL ILLNESS TECHNIQUE: 2 view(s) of the chest. COMPARISON: Chest xray 01/19/16 FINDINGS: Surgical changes and devices: None. Lungs and pleura: No pleural effusions or pneumothorax. Lungs are clear. Mediastinum: Mediastinal contours are normal. Heart size is normal. Bones and chest wall: Sclerotic focus is present in the right humeral head likely enchondroma, uncha nged. Soft tissues appear unremarkable. IMPRESSION: No acute pulmonary process. Reviewed by: Cristina Suarez MD on 05/15/2020 2:51 PM [facility] Approved by: Cristina Suarez MD on 05/15/2020 2:51 PM [facility] Station ID: [id number]
== END 2020-05-15 11:00 | disposition home or self-care (01) ==
LOC: DI.N 10:59
PROVIDERS: ATTEND Nurse Practitioner
DX: B34.9 Viral infection, unspecified (principal)

== ENCOUNTER 2020-05-15 13:04 | Emergency (ER) | payer MEDICARE, MEDICAID ==
--- NOTE | 2020-05-15 14:38 | ED Physician Documentation ---
History of Present Illness - Stated complaint Stated Complaint: SOA SENT BY - Chief complaint Chief Complaint: Resp - History obtained from History obtained from: Patient - Additonal information Additional information: 74-year-old female was brought to the emergency department for evaluation of cough. She presented to the [facility] [place] this morning for shortness of air and cough that began this a.m. She reports to me that they did a chest x-ray and was told that she had Covid pneumonia and therefore to come to the emergency department. Covid testing is pending. Patient reports that she went to bed last night feeling well and woke up this morning with cough and shortness of air. Cough is not productive. No congestion, loss of taste or smell. No fevers. No abdominal pain chest pain nausea vomiting diarrhea or dysuria. Patient does have a history of diabetes managed with Metformin. 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 She is a daily tobacco user but denies a history of asthma or COPD. meds: Metformin, risperidone, as needed clonazepam Review of Systems Constitutional: denies: Fever, Chills Eyes: reports: Reviewed and negative Ears: reports: Reviewed and negative Nose: reports: Reviewed and negative Throat: reports: Reviewed and negative Cardiac: denies: Chest pain / pressure, Palpitations, Pedal edema, Calf pain Respiratory: reports: Dyspnea, Cough. denies: Hemoptysis, Wheezing GI: denies: Abdominal Pain, Abdominal Swelling, Nausea, Vomiting, Constipation : denies: Dysuria, Frequency, Hesitancy Skin: denies: Rash, Lesions Musculoskeletal: denies: Neck pain, Back pain Neurologic: reports: Generalized weakness PD PAST MEDICAL HISTORY - Past Medical History Cardiovascular: Hypertension Respiratory: None Endocrine/Autoimmune: Type 2 diabetes GI: None [employer] SERVICES: None : None HEENT: Other Psych: Schizophrenia Musculoskeletal: None Derm: None - Past Surgical History Past Surgical History: Yes /[employer]: Hysterectomy - Present Medications Home Medications: Ambulatory Orders Medication Instructions Recorded Confirmed Metformin HCl [Fortamet] 500 mg PO BID 01/19/16 05/15/20 risperiDONE [RisperDAL] 4 mg PO DAILY 01/19/16 05/15/20 - Allergies Allergies/Adverse Reactions: Allergies Allergy/AdvReac Type Severity Reaction Status Date / Time Penicillins Allergy Unknown Verified 05/15/20 13:17 procaine [From Novocain] Allergy Unknown Verified 05/15/20 13:17 vaccinations Allergy Unknown Uncoded 07/27/19 05:51 - Social History Does the pt smoke?: Yes Smoking Status: Current every day smoker Does the pt drink ETOH?: No Does the pt have substance abuse?: No - Immunizations Immunizations are current?: Yes - POLST Patient has POLST: No PD ED PE EXPANDED - General General: Alert, No acute distress, Well developed/nourished - Eyes Eyes: Other (loss of vision left eye; left eye deviated laterally. right eye reactive) - Neck Neck: Supple w/out meningeal sx. No: Adenopathy - Cardiac Cardiac: Regular Rate, Regular Rhythm, Radial strong equal, Cap refill < 2 sec - Respiratory Respiratory: Clear to ausultation randolph. No: Distress, Labored, Stridor, Gasping, Accessory mm use, Retractions, Wheezing, Rhonchi - Abdomen Abdomen: Normal Bowel sounds, Distended. No: Tender to palpation - Derm Derm: Normal color, Warm and dry. No: Rash - Extremities Extremities: Normal. No: Deformity, Tenderness - Neuro Neuro: Alert and Oriented X 3, CNII-XII intact, Normal finger nose, Normal speech. No: Normal gait (uses front wheeled walker) - GCS Eye Opening: Spontaneous Motor: Obeys Commands Verbal: Oriented Total: 15 Results - Vitals Vitals: Vital Signs - 24 hr 05/15/20 05/15/20 05/15/20 13:07 14:34 16:13 Temperature 37 C 36.8 C Heart Rate 90 93 100 Respiratory 16 20 20 Rate Blood Pressure 137/59 H 117/46 L 129/64 O2 Saturation 100 96 95 Oxygen O2 Source Room air - Labs Labs: Laboratory Tests 05/15/20 05/15/20 05/15/20 13:40 14:00 14:00 WBC 11.0 H RBC 4.55 Hgb 14.4 Hct 43.3 MCV 95.2 MCH 31.6 H MCHC 33.3 RDW 11.9 L Plt Count 283 MPV 9.4 Neut # (Auto) 6.4 Lymph # (Auto) 4.0 H [place] # (Auto) 0.5 Eos # (Auto) 0.1 Baso # (Auto) 0.1 Absolute Nucleated RBC 0.00 Nucleated RBC % 0.0 Sodium 137 Potassium 3.5 Chloride 97 L Carbon Dioxide 30 Anion Gap 10.0 BUN 6 Creatinine 0.7 Estimated GFR (MDRD) 82 L Glucose 232 H Calcium 9.7 Total Bilirubin 0.6 AST 18 ALT 16 Alkaline Phosphatase 67 Total Protein 7.7 Albumin 4.5 Globulin 3.2 Albumin/Globulin Ratio 1.4 Lipase 36 Urine Color YELLOW Urine Clarity CLEAR Urine pH 5.5 Ur Specific [place] 1.025 Urine Protein NEGATIVE Urine Glucose (UA) NEGATIVE Urine Ketones NEGATIVE Urine Occult Blood NEGATIVE Urine Nitrite NEGATIVE Urine Bilirubin NEGATIVE Urine Urobilinogen 0.2 (NORMAL) Ur Leukocyte Esterase NEGATIVE Ur Microscopic Review NOT INDICATED Urine Culture Comments NOT INDICATED Nasal Adenovirus (PCR) Nasal B. parapertussis DNA (PCR) Nasal Coronavir 229E PCR Nasal Coronavir HKU1 PCR Nasal Coronavir NL63 PCR Nasal Coronavir OC43 PCR Nasal Enterovir/Rhinovir PCR Nasal Influenza B PCR Nasal Influenza A PCR Nasal Parainfluen 1 PCR Nasal Parainfluen 2 PCR Nasal Parainfluen 3 PCR Nasal Parainfluen 4 PCR Nasal RSV (PCR) Nasal B.pertussis DNA PCR Nasal C.pneumoniae (PCR) [place] Human Metapneumo PCR Nasal M.pneumoniae (PCR) Nasal SARS-CoV-2 (PCR) 05/15/20 14:35 WBC RBC Hgb Hct MCV MCH MCHC RDW Plt Count MPV Neut # (Auto) Lymph # (Auto) [place] # (Auto) Eos # (Auto) Baso # (Auto) Absolute Nucleated RBC Nucleated RBC % Sodium Potassium Chloride Carbon Dioxide Anion Gap BUN Creatinine Estimated GFR (MDRD) Glucose Calcium Total Bilirubin AST ALT Alkaline Phosphatase Total Protein Albumin Globulin Albumin/Globulin Ratio Lipase Urine Color Urine Clarity Urine pH Ur Specific [place] Urine Protein Urine Glucose (UA) Urine Ketones Urine Occult Blood Urine Nitrite Urine Bilirubin Urine Urobilinogen Ur Leukocyte Esterase Ur Microscopic Review Urine Culture Comments Nasal Adenovirus (PCR) NOT DETECTED Nasal B. parapertussis DNA (PCR) NOT DETECTED Nasal Coronavir 229E PCR NOT DETECTED Nasal Coronavir HKU1 PCR NOT DETECTED Nasal Coronavir NL63 PCR NOT DETECTED Nasal Coronavir OC43 PCR NOT DETECTED Nasal Enterovir/Rhinovir PCR NOT DETECTED Nasal Influenza B PCR NOT DETECTED Nasal Influenza A PCR NOT DETECTED Nasal Parainfluen 1 PCR NOT DETECTED Nasal Parainfluen 2 PCR NOT DETECTED Nasal Parainfluen 3 PCR NOT DETECTED Nasal Parainfluen 4 PCR NOT DETECTED Nasal RSV (PCR) NOT DETECTED Nasal B.pertussis DNA PCR NOT DETECTED Nasal C.pneumoniae (PCR) NOT DETECTED [place] Human Metapneumo PCR NOT DETECTED Nasal M.pneumoniae (PCR) NOT DETECTED Nasal SARS-CoV-2 (PCR) NOT DETECTED - Rads (name of study) CXR Radiology: Final report received (No acute pulmonary process) PD MEDICAL DECISION MAKING - ED course Complexity details: reviewed results, re-evaluated patient, considered differential, d/w patient ED course: This is a rather well-appearing 74-year-old female who was told by outpatient walk-in clinic to come to the emergency department because they suspected she had Covid pneumonia. Chest x-ray was completed earlier this morning. My impression of it is that there is no acute cardiopulmonary process. I am asking radiology to review. However given age history is tobaccoism and acute symptoms I will proceed with a respiratory PCR panel. If she is Covid positive she would be a candidate for the monoclonal antibody. However on exam she has unremarkable cardiopulmonary auscultation. Room air saturations are 98%. No tachypnea or labored breathing noted 1620: Chest x-ray has been interpreted as normal by radiologist. Respiratory PCR panel is negative. Screening labs including CBC without any worrisome abnormalities. She does have a glucose elevation that is consistent with her history of diabetes. This patient feels well and has remained stable during her stay here in the emergency department she will be discharged home. And worrisome return precautions discussed Departure - Departure Disposition: 01 Home, Self Care Clinical Impression: Cough Condition: Stable Record reviewed to determine appropriate education?: Yes Comments: You were seen today in the emergency department for a cough. The chest x-ray completed at the clinic is normal. You do not have pneumonia. Your virus and respiratory COVID-19 testing is negative. Your labs today are essentially normal with the exception of a mild glucose elevation in the low 200s. This is consistent with your history of diabetes. Please schedule follow-up with your primary doctor. If you develop respiratory distress, have sudden onset chest pain or fainting episodes please return to the ER
[2020-05-15 14:41] LABS: BASOPHILS # (AUTO) 0.1 10^3/uL (0.0-0.1); BASOPHILS % (AUTO) 0.6 %; EOSINOPHILS # (AUTO) 0.1 10^3/uL (0.0-0.7); EOSINOPHILS % (AUTO) 0.6 %; HGB - HEMOGLOBIN 14.4 g/dL (12.0-16.0); LYMPHOCYTES % (AUTO) 36.3 %; MEAN CORPUSCULAR HEMOGLOBIN 31.6 pg (27.0-31.0); MEAN CORPUSCULAR HGB CONC 33.3 g/dL (32.0-36.0); MEAN CORPUSCULAR VOLUME 95.2 fL (81.0-99.0); MEAN PLATELET VOLUME 9.4 fL (7.9-10.8); MONOCYTES # (AUTO) 0.5 10^3/uL (0.0-1.0); MONOCYTES % (AUTO) 4.1 %; NEUTROPHILS # (AUTO) 6.4 10^3/uL (1.5-6.6); PLT - PLATELET COUNT 283 10^3/uL (130-450); RED BLOOD COUNT 4.55 10^6/uL (4.20-5.40); RED CELL DISTRIBUTION WIDTH 11.9 % (12.0-15.0)
[2020-05-15 14:53] LABS: ALBUMIN 4.5 g/dL (3.2-5.5); ALBUMIN/GLOBULIN RATIO 1.4 (1.0-2.2); BILIRUBIN,TOTAL 0.6 mg/dL (0.2-1.0); CALCIUM 9.7 mg/dL (8.5-10.3); CREATININE 0.7 mg/dL (0.4-1.0); TOTAL PROTEIN 7.7 g/dL (6.7-8.2)
[2020-05-15 15:15] LABS: BILIRUBIN,URINE NEGATIVE (NEGATIVE); GLUCOSE, URINE (UA) NEGATIVE (NEGATIVE); KETONES,URINE (UA) NEGATIVE (NEGATIVE); LEUKOCYTE ESTERASE, URINE NEGATIVE (NEGATIVE); NITRITE,URINE NEGATIVE (NEGATIVE); OCCULT BLOOD,URINE NEGATIVE (NEGATIVE); PH,URINE 5.5 PH (5.0-7.5); PROTEIN,URINE NEGATIVE (NEGATIVE); UROBILINOGEN,URINE 0.2 (NORMAL) E.U./dL (NORMAL)
[2020-05-15 15:19] LABS: CLARITY,URINE CLEAR (CLEAR)
[2020-05-15 15:30] LABS: C. PNEUMONIAE- RESP PCR PANEL NOT DETECTED
[2020-05-15 16:14] VITALS: BP 129/64
== END 2020-05-15 16:50 | disposition home or self-care (01) ==
LOC: ED 13:04
DX: R05 Cough (principal); B34.9 Viral infection, unspecified; Z20.822 Contact with and (suspected) exposure to COVID-19; F17.200 Nicotine dependence, unspecified, uncomplicated; E11.9 Type 2 diabetes mellitus without complications; Z79.84 Long term (current) use of oral hypoglycemic drugs; I10 Essential (primary) hypertension
CPT/HCPCS: 36415; 71046; 80053; 81003; 83690; 85025; 87275; 87276; 87631; 99283; 99284; U0004; 0202U; 81001; 87086

== ENCOUNTER 2020-07-02 08:00 | Outpatient (CLI) | payer MEDICARE, MEDICAID ==
[2020-07-02 18:14] LABS: ALBUMIN 4.6 g/dL (3.2-5.5); ALBUMIN/GLOBULIN RATIO 1.6 (1.0-2.2); BILIRUBIN,TOTAL 0.6 mg/dL (0.2-1.0); CALCIUM 9.2 mg/dL (8.5-10.3); CREATININE 0.6 mg/dL (0.4-1.0); POTASSIUM 4.1 mmol/L (3.5-5.0); TOTAL PROTEIN 7.5 g/dL (6.7-8.2)
[2020-07-02 18:20] LABS: BASOPHILS # (AUTO) 0.1 10^3/uL (0.0-0.1); BASOPHILS % (AUTO) 0.6 %; EOSINOPHILS # (AUTO) 0.1 10^3/uL (0.0-0.7); EOSINOPHILS % (AUTO) 0.8 %; HCT - HEMATOCRIT 43.6 % (37.0-47.0); HGB - HEMOGLOBIN 14.6 g/dL (12.0-16.0); LYMPHOCYTES # (AUTO) 3.4 10^3/uL (1.5-3.5); MEAN CORPUSCULAR HEMOGLOBIN 31.7 pg (27.0-31.0); MEAN CORPUSCULAR HGB CONC 33.5 g/dL (32.0-36.0); MEAN CORPUSCULAR VOLUME 94.6 fL (81.0-99.0); MEAN PLATELET VOLUME 10.2 fL (7.9-10.8); MONOCYTES # (AUTO) 0.6 10^3/uL (0.0-1.0); MONOCYTES % (AUTO) 6.5 %; NEUTROPHILS # (AUTO) 4.8 10^3/uL (1.5-6.6); NEUTROPHILS % (AUTO) 53.8 %; PLT - PLATELET COUNT 277 10^3/uL (130-450); RED BLOOD COUNT 4.61 10^6/uL (4.20-5.40); RED CELL DISTRIBUTION WIDTH 11.9 % (12.0-15.0)
[2020-07-02 18:30] LABS: THYROID STIMULATING HORMONE 0.57 uIU/mL (0.34-5.60)
[2020-07-02 20:08] LABS: ESTIMATED AVERAGE GLUCOSE 171 mg/dL (70-100); HEMOGLOBIN A1c% 7.6 % (4.27-6.07)
== END 2020-07-02 23:59 | disposition home or self-care (01) ==
LOC: LAB.N 08:00
PROVIDERS: ATTEND Family Medicine
DX: G62.9 Polyneuropathy, unspecified (principal); E11.9 Type 2 diabetes mellitus without complications
CPT/HCPCS: 36415; 80053; 82607; 83036; 83921; 84443; 85025; 85651

== ENCOUNTER 2020-07-23 17:23 | Outpatient (CLI) | payer MEDICARE, MEDICAID ==
--- OUTSIDE RECORDS SUMMARY | 2020-07-30 00:17 | EXTERNAL MEDICAL SUMMARY RPT | Continuity of Care Document ---
:1945 Demographics Phone Unavailable Preferred Language Unknown Marital Status Unknown Temple Affiliation Unknown Race Unknown Ethnic Group Unknown Author Organization [facility] Address [address] [id number] Phone Social History date description facility [phone]
== END 2020-07-23 17:24 | disposition critical access hospital (66) ==
LOC: EMS 17:23
PROVIDERS: ATTEND Emergency Medicine
DX: R42 Dizziness and giddiness (principal)
CPT/HCPCS: A0425; A0427

== ENCOUNTER 2020-07-23 17:42 | Emergency (ER) | payer MEDICARE, MEDICAID ==
--- NOTE | 2020-07-23 18:35 | ED Physician Documentation ---
History of Present Illness - Stated complaint Stated Complaint: DIZZY - Chief complaint Chief Complaint: Neuro - History obtained from History obtained from: Patient - Additonal information Additional information: She took 100 mg of gabapentin 2 nights ago. This was her first time taking it for diagnosis of neuropathy. Since then she has been lightheaded and dizzy with dry mouth and blurry vision. This is persistent despite not taking any more gabapentin. 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: Hysterectomy - Present Medications Home Medications: Ambulatory Orders Medication Instructions Recorded Confirmed Metformin HCl [Fortamet] 500 mg PO BID 01/19/16 05/15/20 risperiDONE [RisperDAL] 4 mg PO DAILY 01/19/16 05/15/20 - Allergies Allergies/Adverse Reactions: Allergies Allergy/AdvReac Type Severity Reaction Status Date / Time Penicillins Allergy Unknown Verified 07/23/20 17:53 procaine [From Novocain] Allergy Unknown Verified 07/23/20 17:53 vaccinations Allergy Unknown Uncoded 07/23/20 17:53 - Social History Does the pt smoke?: Yes Smoking Status: Current every day smoker Does the pt drink ETOH?: No Does the pt have substance abuse?: No - Immunizations Immunizations are current?: Yes - POLST Patient has POLST: No PD ED PE NORMAL - Vitals Vital signs reviewed: Yes - General General: Alert and oriented X 3, No acute distress - Neck Neck: Supple, no meningeal sign, No bony TTP - Cardiac Cardiac: RRR, No murmur - Respiratory Respiratory: No respiratory distress, Clear bilaterally - Abdomen Abdomen: Non tender - Back Back: No CVA TTP, No spinal TTP - Derm Derm: Normal color, Warm and dry - Extremities Extremities: No edema, No calf tenderness / cord - Neuro Neuro: Alert and oriented X 3, Normal speech Results - Vitals Vitals: Vital Signs - 24 hr 07/23/20 07/23/20 17:46 18:33 Temperature 36.7 C Heart Rate 81 Heart Rate [ 80 Sitting] Heart Rate [ 92 Standing] Heart Rate [ 73 Supine] Respiratory 14 Rate Blood Pressure 145/71 H Blood Pressure 124/54 L [Sitting] Blood Pressure 134/55 H [Standing] Blood Pressure 114/47 L [Supine] O2 Saturation 94 Oxygen O2 Source Room air - EKG (time done) 1817 Rate: Rate (enter#) (67) Rhythm: NSR [place]: Normal Intervals: Normal OR QRS: Normal Ischemia: Normal ST segments Computer interpretation: Agree with computer - Labs Labs: Laboratory Tests 07/23/20 07/23/20 18:44 18:44 WBC 9.4 RBC 4.45 Hgb 14.6 Hct 41.8 MCV 93.9 MCH 32.8 H MCHC 34.9 RDW 11.7 L Plt Count 260 MPV 9.5 Neut # (Auto) 5.2 Lymph # (Auto) 3.5 [place] # (Auto) 0.6 Eos # (Auto) 0.1 Baso # (Auto) 0.1 Absolute Nucleated RBC 0.00 Nucleated RBC % 0.0 Sodium 134 L Potassium 3.8 Chloride 98 L Carbon Dioxide 27 Anion Gap 9.0 BUN 7 Creatinine 0.6 Estimated GFR (MDRD) 98 Glucose 123 H Calcium 9.1 Magnesium 1.7 Total Bilirubin 0.7 AST 16 ALT 16 Alkaline Phosphatase 69 Total Protein 7.4 Albumin 4.5 Globulin 2.9 Albumin/Globulin Ratio 1.6 PD MEDICAL DECISION MAKING - ED course ED course: 74-year-old woman with persistent dizziness after taking her first dose of gabapentin. She is orthostatic here so my suspicion is potentially the gabapentin started at and then she remained dizzy because of the orthostatic hypotension or there was prolonged clearing time from decreased renal perfusion although there is no sign of this on her labs. Otherwise no concerning findings. She is administered IV fluids. Departure - Departure Disposition: 01 Home, Self Care Clinical Impression: Orthostatic hypotension Condition: Stable Record reviewed to determine appropriate education?: Yes Instructions: ED Hypotension Orthostatic Comments: Call your doctor to arrange a follow-up appointment, make the next available appointment. In the interim, return anytime if worse or if new symptoms develop.
[2020-07-23 18:54] LABS: BASOPHILS # (AUTO) 0.1 10^3/uL (0.0-0.1); BASOPHILS % (AUTO) 0.6 %; EOSINOPHILS # (AUTO) 0.1 10^3/uL (0.0-0.7); EOSINOPHILS % (AUTO) 0.7 %; HCT - HEMATOCRIT 41.8 % (37.0-47.0); HGB - HEMOGLOBIN 14.6 g/dL (12.0-16.0); LYMPHOCYTES # (AUTO) 3.5 10^3/uL (1.5-3.5); LYMPHOCYTES % (AUTO) 37.3 %; MEAN CORPUSCULAR HEMOGLOBIN 32.8 pg (27.0-31.0); MEAN CORPUSCULAR HGB CONC 34.9 g/dL (32.0-36.0); MEAN CORPUSCULAR VOLUME 93.9 fL (81.0-99.0); MEAN PLATELET VOLUME 9.5 fL (7.9-10.8); MONOCYTES # (AUTO) 0.6 10^3/uL (0.0-1.0); NEUTROPHILS # (AUTO) 5.2 10^3/uL (1.5-6.6); NEUTROPHILS % (AUTO) 55.2 %; PLT - PLATELET COUNT 260 10^3/uL (130-450); RED BLOOD COUNT 4.45 10^6/uL (4.20-5.40); RED CELL DISTRIBUTION WIDTH 11.7 % (12.0-15.0); WHITE BLOOD COUNT 9.4 x10^3/uL (4.8-10.8)
[2020-07-23 19:03] LABS: ALBUMIN 4.5 g/dL (3.2-5.5); ALBUMIN/GLOBULIN RATIO 1.6 (1.0-2.2); BILIRUBIN,TOTAL 0.7 mg/dL (0.2-1.0); CALCIUM 9.1 mg/dL (8.5-10.3); CREATININE 0.6 mg/dL (0.4-1.0); MAGNESIUM 1.7 mg/dL (1.7-2.8); POTASSIUM 3.8 mmol/L (3.5-5.0); TOTAL PROTEIN 7.4 g/dL (6.7-8.2)
[2020-07-23] MEDS ORDERED: SODIUM CHLORIDE 0.9% 1,000 ML IV STA (19:15)
[2020-07-23 19:52] VITALS: BP 128/64
--- OUTSIDE RECORDS SUMMARY | 2020-07-30 00:15 | EXTERNAL MEDICAL SUMMARY RPT | Continuity of Care Document ---
:1945 Demographics Phone Unavailable Preferred Language Unknown Marital Status Unknown Latter Day Affiliation Unknown Race Unknown Ethnic Group Unknown Author Organization [facility] Address [address] [id number] Phone Social History date description facility [phone]
== END 2020-07-23 19:51 | disposition home or self-care (01) ==
LOC: EDUNIT# → SUPCPDRO 17:42 → ED 17:42
DX: I95.1 Orthostatic hypotension (principal); E11.40 Type 2 diabetes mellitus with diabetic neuropathy, unspecified; Z79.84 Long term (current) use of oral hypoglycemic drugs; I10 Essential (primary) hypertension; F17.200 Nicotine dependence, unspecified, uncomplicated
CPT/HCPCS: 36415; 80053; 83735; 85025; 93005; 99283; 99284

== ENCOUNTER 2020-09-23 10:00 | Outpatient (CLI) | payer MEDICARE, MEDICAID ==
--- NOTE | 2020-09-23 10:36 | XRAY Report ---
PROCEDURE: Elbow 3 View LT INDICATIONS: ARM PAIN, LEFT TECHNIQUE: 3 views of the elbow were acquired. COMPARISON: None. FINDINGS: Bones: No fractures or dislocations. No suspicious bony lesions. There is a slight degree of olecr anon fossa articular margin spurring seen on the lateral view. No joint effusion or loose body seen. No trauma found. Soft tissues: No elbow joint effusion. No suspicious soft tissue calcifications. IMPRESSION: Minimal degenerative osteoarthritic change at the olecranon fossa, no trauma found, no effusion seen. Reviewed by: Gómez Peres MD on 09/23/2020 9:35 AM CHUY Approved by: Gómez Peres MD on 09/23/2020 9:35 AM CHUY Station ID: [id number]
--- NOTE | 2020-09-23 10:57 | XRAY Report ---
PROCEDURE: Shoulder 2 View LT INDICATIONS: ARM PAIN, LEFT TECHNIQUE: 2 views of the shoulder were acquired. COMPARISON: None. FINDINGS: Bones: No fractures or dislocations. No suspicious bony lesions. Visualized ribs appear intact. Soft tissues: No suspicious soft tissue calcifications. IMPRESSION: There is a mild degree of AC joint osteoarthritis. No trauma found. Reviewed by: Gómez Peres MD on 09/23/2020 9:55 AM CHUY Approved by: Gómez Peres MD on 09/23/2020 9:55 AM NELUCY Station ID: [id number]
== END 2020-09-23 23:59 | disposition home or self-care (01) ==
LOC: DI.N 10:00
PROVIDERS: ATTEND Family Medicine
DX: M19.022 Primary osteoarthritis, left elbow (principal); M19.012 Primary osteoarthritis, left shoulder

== ENCOUNTER 2020-10-06 07:00 | Outpatient (CLI) | payer MEDICARE, MEDICAID | END 2020-10-06 23:59 | disposition home or self-care (01) | LOC: COV 07:00 | PROVIDERS: ATTEND Ophthalmology | DX: Z01.812 Encounter for preprocedural laboratory examination (principal); H25.811 Combined forms of age-related cataract, right eye; E11.9 Type 2 diabetes mellitus without complications; Z20.822 Contact with and (suspected) exposure to COVID-19 ==

== ENCOUNTER 2020-10-09 08:59 | Day surgery (SDC) | payer MEDICARE, MEDICAID ==
[~2020-10-09 08:59] MED LIST: CYCLOPENTOLATE 1% OPHTH DROPS 2 ML ONE; KETOROLAC 0.45% OPHTH DROPS ONE; PHENYLEPHRINE 2.5% OPHTH 2 ML DROPS ONE; PROPARACAINE 0.5% OPHTH DROPS 15 ML ONE
[2020-10-09] MEDS ORDERED: LACTATED RINGERS 500 ML IV ONE ×2 (09:35→11:18)
--- NOTE | 2020-10-09 09:58 | ANESTHESIA ---
Pre-Anesthesia VS, & Labs - Diagnosis right eye cataract - Procedure Right CATIOL Vital Signs: Temp Pulse Resp BP Pulse Ox 36.5 C 92 16 130/66 95 10/09/20 09:36 10/09/20 09:36 10/09/20 09:36 10/09/20 09:36 10/09/20 09:36 Height: 5 ft 4 in Weight (kg): 62 kg Body Mass Index: 23.4 BMI Classification: Healthy weight - NPO >8 hours - Is Patient ?: No - Lab Results Lab results reviewed: Yes Home Medications and Allergies Home Medications: Ambulatory Orders clonazePAM [Clonazepam] 0.5 mg PO DAILY PRN 10/08/20 Metformin HCl [Fortamet] 500 mg PO BID 01/19/16 risperiDONE [RisperDAL] 4 mg PO DAILY 01/19/16 clonazePAM [Clonazepam] 0.5 mg PO DAILY PRN 10/08/20 Allergies/Adverse Reactions: Allergies Allergy/AdvReac Type Severity Reaction Status Date / Time Penicillins Allergy Unknown Verified 07/23/20 17:53 procaine [From Novocain] Allergy Unknown Verified 07/23/20 17:53 vaccinations Allergy Unknown Uncoded 07/23/20 17:53 Anes History & Medical History - Anesthetic History Anesthesia Complications: reports: No previous complications Family history of Anesthesia Complications: Denies Family history of Malignant Hyperthermia: Denies - Medical History Cardiovascular: reports: Hypertension Pulmonary: reports: None Gastrointestinal: reports: None Urinary: reports: None, Incontinence Musculoskeletal: reports: None Endocrine/Autoimmune: reports: Type 2 diabetes Blood Disorders: reports: None Skin: reports: None Smoking Status: Current every day smoker - Surgical History Eyes Ears Nose Throat (EENT): reports: Cataracts Gynecologic: reports: section Exam General: Alert, Oriented x3, Cooperative, No acute distress Dental: WNL Mouth Openin Fingerbreadth Neck Mobility: Normal Mallampati classification: II Respiratory: Lungs clear, Normal breath sounds, No respiratory distress, No accessory muscle use Cardiovascular: Regular rate, Normal S1, Normal S2, No murmurs Plan Anesthesia Type: MAC Consent for Procedure(s) Verified and Reviewed: Yes Code Status: Attempt Resuscitation ASA classification: 2-Mild systemic disease Is this case an emergency?: No
[2020-10-09] MEDS ORDERED: MIDAZOLAM 2 MG/2 ML VIAL ONE (10:11)
[2020-10-09] MEDS ORDERED: BSS/LIDOCAINE/EPINEPHRINE 1 ML SYRINGE IO ONE (10:36)
[2020-10-09] MEDS ORDERED: TRIAMCIN/MOXIFLOX OPHTHALMIC 0.6 ML VIAL IO ONE ×2 (10:36→13:06)
[2020-10-09] MEDS ORDERED: TIMOLOL 0.5% OPHTH DROPS OPTH ONE (10:36)
[2020-10-09] MEDS ORDERED: EPINEPHrine 1 MG/ML AMP IR ONE (10:36)
[2020-10-09] MEDS ORDERED: BRIMONIDINE 0.2% OPHTH DROPS 5 ML OPTH ONE (10:36)
[2020-10-09] MEDS ORDERED: CHONDR SULF/HYALURONATE SYRINGE IO ONE (10:36)
[2020-10-09] MEDS ORDERED: VANCOMYCIN OPHTHALMI 8MG/0.8ML 8 MG/0.8 ML SYRINGE IO ONE ×2 (10:37→13:07)
[2020-10-09] MEDS ORDERED: PROPARACAINE 0.5% OPHTH DROPS 15 ML EACHEYE ONE (10:37)
[2020-10-09] MEDS ORDERED: TRIAMCINOLONE PF 40 MG/ML VIAL IO ONE (10:59)
[2020-10-09] MEDS ORDERED: ACETYLCHOLINE 20 MG/2 ML KIT IO ONE (11:00)
--- NOTE | 2020-10-09 11:52 | ANESTHESIA POST OP EVALUATION ---
Anesthesia Post Eval - Post Anesthesia Eval Vitals: Last Vital Signs Temp 36.6 C 10/09/20 11:15 Pulse 86 10/09/20 11:15 Resp 16 10/09/20 11:15 BP 138/69 H 10/09/20 11:15 Pulse Ox 99 10/09/20 11:15 CV Function Including HR & BP: Stable Pain Control: Satisfactory Nausea & Vomiting: Negative Mental Status: Baseline Respiratory Status: Airway Patent Hydration Status: Satisfactory Anesthesia Complications: None
[2020-10-09 12:02] VITALS: BP 136/60
[2020-10-09] MEDS ORDERED: EPINEPHrine 1 MG/ML AMP ONE (13:06)
[2020-10-09] MEDS ORDERED: BRIMONIDINE 0.2% OPHTH DROPS 5 ML ONE (13:06)
[2020-10-09] MEDS ORDERED: TIMOLOL 0.5% OPHTH DROPS ONE (13:06)
[2020-10-09] MEDS ORDERED: BSS/LIDOCAINE/EPINEPHRINE 1 ML SYRINGE ONE (13:07)
--- NOTE | 2020-10-09 14:15 | OPERATIVE REPORT ---
Operative Report - Other Other Information/Narrative: Date of Surgery: 10/09/20 Preop Dx: Visually significant cataract right eye.Cataract surgery was performed in the left eye on 11/08/2016. Postop Dx: Same Procedure: Phacoemulsification with posterior chamber intraocular lens implant right eye Surgeon: Dr. Bobby Nova Anesthesia: Monitored anesthesia care Complications: Unplanned vitrectomy due to posterior capsule rupture. Operative Indications: This is a 75-year-old F with progressive vision loss in the right eye due to 2+ nuclear sclerotic and 3+ posterior subcapsular cataract. Best corrected visual acuity was 20/30 with glare to hand-motion vision in the right eye. Indications for surgery were: - Overall decrease in vision - Difficulty reading The patient was consented at length concerning the risks and benefits of cataract surgery after which the patient expressed a desire to proceed with surgery. Operative Procedure: The patient was taken into OR#3 and placed under monitored anesthesia care. A surgical time-out was conducted confirming correct patient, correct procedure, and correct surgical site. The patient was given topical anesthesia and then prepped and draped in the usual sterile fashion. The eye was entered at the 6 and 3 oclock positions. Intracameral Shugarcaine was injected into the anterior chamber followed by a dispersive viscoelastic. A continuous-tear curvilinear capsulorhexis was performed. The nucleus was hydrodissected and phacoemulsified. The cortex was started to be evacuated when is was noted that there were a couple of thin strands of vitreous coming from the wound. A dispersive viscoelastic was injected into the anterior chamber and through the pupil and it did appear to continue to migrate into the posterior chamber - the posterior capsule was ruptured. A cohesive viscoelastive was used to inflate the sulcus space and a 19.0 diopter 3-piece intraocular lens was inserted into the sulcus. Myostat was injected into the anteriro chamber to bring the pupil down. Triescence was used to stain any vitreous in the anterior chamber. Very minimal dry vitrectomy was used to release vitreous tension and allow the strands to fall back behind the IOL. Infusion and aspiration were used to evacuate the viscoelastic materials from the anterior chamber. The wounds were hydrated and the eye inflated to physiologic pressure using balanced salt solution. A 10-0 nylon suster was placed across the wound and hydrated again. Approximately 0.25ml of a mixture of triamcinolone and moxifloxacin was injected trans-sclerally into the vitreous in the inferotemporal quadrant using a 30 gauge cannula which caused the iris to prolapse through the phaco wound around the suture. This was corrected using a cyclodialysis spatula. An additional 0.55ml of a mixture of triamcinolone, moxifloxacin, and vancomycin was injected subconjunctivally in the superior quadrant for infection and inflammation prophylaxis. Wound integrity was checked with Weck-Hanh sponges. The patient was taken from the operating room in good condition, given post-op instructions, and informed of the complication.
== END 2020-10-09 09:00 | disposition home or self-care (01) ==
LOC: SDS 08:59
PROVIDERS: ATTEND Ophthalmology
DX: E11.36 Type 2 diabetes mellitus with diabetic cataract (principal); H25.811 Combined forms of age-related cataract, right eye; I10 Essential (primary) hypertension; F41.9 Anxiety disorder, unspecified; H50.00 Unspecified esotropia; Z96.1 Presence of intraocular lens; Z79.84 Long term (current) use of oral hypoglycemic drugs
CPT/HCPCS: 66984; A9270; J3300; J3490; J7120; V2632

== ENCOUNTER 2020-10-31 08:00 | Outpatient (CLI) | payer MEDICARE, MEDICAID ==
[2020-10-31 13:14] LABS: BASOPHILS # (AUTO) 0.1 10^3/uL (0.0-0.1); BASOPHILS % (AUTO) 0.6 %; EOSINOPHILS # (AUTO) 0.1 10^3/uL (0.0-0.7); HCT - HEMATOCRIT 43.1 % (37.0-47.0); HGB - HEMOGLOBIN 14.6 g/dL (12.0-16.0); LYMPHOCYTES # (AUTO) 3.3 10^3/uL (1.5-3.5); LYMPHOCYTES % (AUTO) 36.1 %; MEAN CORPUSCULAR HEMOGLOBIN 32.3 pg (27.0-31.0); MEAN CORPUSCULAR HGB CONC 33.9 g/dL (32.0-36.0); MEAN CORPUSCULAR VOLUME 95.4 fL (81.0-99.0); MEAN PLATELET VOLUME 9.9 fL (7.9-10.8); MONOCYTES # (AUTO) 0.6 10^3/uL (0.0-1.0); MONOCYTES % (AUTO) 6.3 %; NEUTROPHILS # (AUTO) 5.2 10^3/uL (1.5-6.6); NEUTROPHILS % (AUTO) 55.8 %; PLT - PLATELET COUNT 287 10^3/uL (130-450); RED BLOOD COUNT 4.52 10^6/uL (4.20-5.40); RED CELL DISTRIBUTION WIDTH 11.7 % (12.0-15.0); WHITE BLOOD COUNT 9.2 x10^3/uL (4.8-10.8)
== END 2020-10-31 23:59 | disposition home or self-care (01) ==
LOC: LAB.N 08:00
PROVIDERS: ATTEND Physician Assistant Medical
DX: K92.1 Melena (principal)
CPT/HCPCS: 36415; 85025

== ENCOUNTER 2020-11-12 13:47 | Outpatient (CLI) | payer MEDICARE, MEDICAID | END 2020-11-12 13:48 | disposition critical access hospital (66) | LOC: EMS 13:47 | DX: R42 Dizziness and giddiness (principal); R61 Generalized hyperhidrosis; R50.9 Fever, unspecified; R51.9 Headache, unspecified | CPT/HCPCS: A0425; A0429 ==

== ENCOUNTER 2020-11-12 14:11 | Emergency (ER) | payer MEDICARE, MEDICAID ==
--- NOTE | 2020-11-12 14:22 | ED Physician Documentation ---
PD HPI URI - Stated complaint Stated Complaint: CHILLS/FEVER - Chief complaint Chief Complaint: General - History obtained from History obtained from: Patient - History of Present Illness Timing - onset: How many days ago (few) Timing duration: Days (few) Timing details: Gradual onset, Still present Associated symptoms: Fever (last night and this morning.), Chills, Other (had some nausea with soft stool diarrhea that was mucous and odorous 4-5 days ago for few days and has decreased the diarrhea but now with feeling of feve rs/chills and some left lower abd pain.). No: Sore throat, Chest pain, Dyspnea Contributing factors: No: Sick contact, Travel, Immunocompromised Similar symptoms before: Has not had sx before Recently seen: Not recently seen Review of Systems Constitutional: reports: Fever, Fatigue. denies: Chills Cardiac: denies: Chest pain / pressure, Palpitations Respiratory: denies: Dyspnea, Cough GI: reports: Abdominal Pain, Nausea, Diarrhea. 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: Hysterectomy - Present Medications Home Medications: Ambulatory Orders Medication Instructions Recorded Confirmed Metformin HCl [Fortamet] 500 mg PO BID 01/19/16 10/08/20 risperiDONE [RisperDAL] 4 mg PO DAILY 01/19/16 10/08/20 clonazePAM [Clonazepam] 0.5 mg PO DAILY PRN 10/08/20 10/08/20 Naproxen [EC-Naproxen] 500 mg PO BID #20 11/12/20 Naproxen [Naprosyn] 500 mg PO BID 5 Days #20 tablet 11/12/20 metroNIDAZOLE [Flagyl] 500 mg PO BID #10 tablet 11/12/20 - Allergies Allergies/Adverse Reactions: Allergies Allergy/AdvReac Type Severity Reaction Status Date / Time Penicillins Allergy Unknown Verified 11/12/20 14:17 procaine [From Novocain] Allergy Unknown Verified 11/12/20 14:17 vaccinations Allergy Unknown Uncoded 07/23/20 17:53 - Social History Does the pt smoke?: Yes Smoking Status: Current every day smoker Does the pt drink ETOH?: No Does the pt have substance abuse?: No - Immunizations Immunizations are current?: Yes - POLST Patient has POLST: No PD ED PE NORMAL - Vitals Vital signs reviewed: Yes - General General: Alert and oriented X 3, No acute distress, Well developed/nourished - HEENT HEENT: Ears normal, Pharynx benign. No: Moist mucous membranes - Neck Neck: Supple, no meningeal sign, No adenopathy - Cardiac Cardiac: No murmur. No: RRR (tachycardia) - Respiratory Respiratory: Clear bilaterally - Abdomen Abdomen: Soft, Non tender - Back Back: No CVA TTP - Derm Derm: Normal color, Warm and dry, No rash - Neuro Neuro: Alert and oriented X 3, No motor deficit, Normal speech Results - Vitals Vitals: Vital Signs - 24 hr 11/12/20 11/12/20 11/12/20 14:17 14:26 15:30 Temperature 36.7 C Heart Rate 126 H 119 H 107 H Respiratory 20 28 H 15 Rate Blood Pressure 143/66 H 175/78 H 143/71 H O2 Saturation 98 94 95 11/12/20 11/12/20 11/12/20 16:30 17:00 18:00 Temperature 36.4 C L Heart Rate 98 101 H 107 H Respiratory 28 H 25 H 26 H Rate Blood Pressure 137/58 H 155/84 H 137/74 H O2 Saturation 96 98 96 Oxygen O2 Source Room air - Labs Labs: Laboratory Tests 11/12/20 11/12/20 11/12/20 14:55 14:57 14:57 WBC 9.8 RBC 4.38 Hgb 14.4 Hct 40.4 MCV 92.2 MCH 32.9 H MCHC 35.6 RDW 11.3 L Plt Count 223 MPV 10.0 Neut # (Auto) 6.3 Lymph # (Auto) 2.7 [place] # (Auto) 0.7 Eos # (Auto) 0.1 Baso # (Auto) 0.0 Absolute Nucleated RBC 0.00 Nucleated RBC % 0.0 Sodium 136 Potassium 3.8 Chloride 102 Carbon Dioxide 25 Anion Gap 9.0 BUN 11 Creatinine 0.8 Estimated GFR (MDRD) 70 L Glucose 187 H Calcium 8.8 Total Bilirubin 0.6 AST 17 ALT 14 Alkaline Phosphatase 69 Total Protein 7.0 Albumin 4.2 Globulin 2.8 Albumin/Globulin Ratio 1.5 Lipase 40 Nasal Adenovirus (PCR) NOT DETECTED Nasal B. parapertussis DNA (PCR) NOT DETECTED Nasal Coronavir 229E PCR NOT DETECTED Nasal Coronavir HKU1 PCR NOT DETECTED Nasal Coronavir NL63 PCR NOT DETECTED Nasal Coronavir OC43 PCR NOT DETECTED Nasal Enterovir/Rhinovir PCR NOT DETECTED Nasal Influenza B PCR NOT DETECTED Nasal Influenza A PCR NOT DETECTED Nasal Parainfluen 1 PCR NOT DETECTED Nasal Parainfluen 2 PCR NOT DETECTED Nasal Parainfluen 3 PCR NOT DETECTED Nasal Parainfluen 4 PCR NOT DETECTED Nasal RSV (PCR) NOT DETECTED Nasal B.pertussis DNA PCR NOT DETECTED Nasal C.pneumoniae (PCR) NOT DETECTED [place] Human Metapneumo PCR NOT DETECTED Nasal M.pneumoniae (PCR) NOT DETECTED Nasal SARS-CoV-2 (PCR) NOT DETECTED - Rads (name of study) abd /pelvic CT Radiology: Prelim report reviewed (diverticulosis without notable diverticulitis. ), See rad report PD MEDICAL DECISION MAKING - ED course Complexity details: reviewed results (her symptoms are c/w diverticulitis with mucous and bloody stools. CT does not show acute local process. Clinically seems should treat for colitis. ), considered differential, d/w patient Departure - Departure Disposition: 01 Home, Self Care Clinical Impression: Abdominal pain Qualifiers: Abdominal location: left lower quadrant Qualified Code(s): R10.32 - Left lower quadrant pain Diarrhea Qualifiers: Diarrhea type: unspecified type Qualified Code(s): R19.7 - Diarrhea, unspecified Condition: Stable Record reviewed to determine appropriate education?: Yes Follow-Up: Timbo Arriaza MD [Primary Care Provider] - Prescriptions: Naproxen [EC-Naproxen] 500 mg PO BID #20 metroNIDAZOLE [Flagyl] 500 mg PO BID #10 tablet Naproxen [Naprosyn] 500 mg PO BID 5 Days #20 tablet Comments: Your CT scan does not show any localized infection. You do have some diverticula but no obvious diverticulitis on the scan. However your symptoms of some pain in the lower left associated with the blood in diarrhea would be very suggestive of a mild colitis or infection of the colon commonly associated with some diverticulitis. I would suggest treating this with anti-inflammatory and antibiotic for several days and see if you improve. I wrote prescriptions for both of these. Stay well-hydrated. Follow-up with your primary care if not improved well over the next few days. Discharge Date/Time: 11/12/20 16:50
[2020-11-12] MEDS ORDERED: IOVERSOL 320 100 ML VIAL IVP ONE (14:55)
[2020-11-12] MEDS: ONDANSETRON 4 MG/2 ML VIAL IVP STA (14:59)
[2020-11-12] MEDS: SODIUM CHLORIDE 0.9% 1,000 ML IV STA (14:59)
[2020-11-12 15:03] LABS: BASOPHILS % (AUTO) 0.4 %; EOSINOPHILS # (AUTO) 0.1 10^3/uL (0.0-0.7); EOSINOPHILS % (AUTO) 0.6 %; HCT - HEMATOCRIT 40.4 % (37.0-47.0); HGB - HEMOGLOBIN 14.4 g/dL (12.0-16.0); LYMPHOCYTES # (AUTO) 2.7 10^3/uL (1.5-3.5); LYMPHOCYTES % (AUTO) 27.6 %; MEAN CORPUSCULAR HEMOGLOBIN 32.9 pg (27.0-31.0); MEAN CORPUSCULAR HGB CONC 35.6 g/dL (32.0-36.0); MEAN CORPUSCULAR VOLUME 92.2 fL (81.0-99.0); MONOCYTES # (AUTO) 0.7 10^3/uL (0.0-1.0); MONOCYTES % (AUTO) 6.7 %; NEUTROPHILS # (AUTO) 6.3 10^3/uL (1.5-6.6); NEUTROPHILS % (AUTO) 64.5 %; PLT - PLATELET COUNT 223 10^3/uL (130-450); RED BLOOD COUNT 4.38 10^6/uL (4.20-5.40); RED CELL DISTRIBUTION WIDTH 11.3 % (12.0-15.0); WHITE BLOOD COUNT 9.8 x10^3/uL (4.8-10.8)
[2020-11-12 15:15] LABS: ALBUMIN 4.2 g/dL (3.2-5.5); ALBUMIN/GLOBULIN RATIO 1.5 (1.0-2.2); BILIRUBIN,TOTAL 0.6 mg/dL (0.2-1.0); CALCIUM 8.8 mg/dL (8.5-10.3); CREATININE 0.8 mg/dL (0.4-1.0); POTASSIUM 3.8 mmol/L (3.5-5.0)
[2020-11-12] MEDS: IOVERSOL 320 100 ML VIAL IVP ONE (15:57)
[2020-11-12 16:12] LABS: B. PARAPERTUSSIS- RESP PCR PAN NOT DETECTED; B. PERTUSSIS- RESP PCR PANEL NOT DETECTED; C. PNEUMONIAE- RESP PCR PANEL NOT DETECTED; CORONAVIRUS 229E-RESP PCR NOT DETECTED; CORONAVIRUS HKU1-RESP PCR NOT DETECTED; CORONAVIRUS NL63-RESP PCR NOT DETECTED; CORONAVIRUS OC43-RESP PCR NOT DETECTED; HUMAN METAPNEUMOVIRUS NOT DETECTED; INFLUENZA A- RESP PCR PANEL NOT DETECTED; INFLUENZA B - RESP PCR PANEL NOT DETECTED; M. PNEUMONIAE- RESP PCR PANEL NOT DETECTED; PARAINFLUENZA VIRUS 1 NOT DETECTED; PARAINFLUENZA VIRUS 2 NOT DETECTED; PARAINFLUENZA VIRUS 3 NOT DETECTED; PARAINFLUENZA VIRUS 4 NOT DETECTED; RHINOVIRUS/ENTEROVIRUS NOT DETECTED; RSV- RESP PCR PANEL NOT DETECTED; SARS-CoV-2 -RESP PCR PANEL NOT DETECTED
--- NOTE | 2020-11-12 16:17 | CT Report ---
PROCEDURE: Abdomen/Pelvis W INDICATIONS: LLQ Abdominal pain, diverticulitis suspected CONTRAST: IV CONTRAST: Optiray 320 ml: 100 PO CONTRAST: *NO PO CONTRAST TECHNIQUE: After the administration of intravenous contrast, 5 mm thick sections acquired from the diaphragms to the symphysis. 5 mm thick coronal and sagittal reformats were acquired. For radiation dose reducti on, the following was used: automated exposure control, adjustment of mA and/or kV according to gladys ent size. COMPARISON: 06/08/2019 FINDINGS: Image quality: Patient motion artifact. This blurs the region around the gallbladder and stomach and transverse colon and right colon.. ABDOMEN: Lung bases: Lung bases are clear. Heart size is normal. Solid organs: Liver and spleen are normal in size and enhancement. Gallbladder is again noted to co ntain a large gallstone. Biliary system is non dilated. Pancreas enhances normally. No adrenal nod ules. Kidneys demonstrate normal size and enhancement, without hydronephrosis. Peritoneum and bowel: Bowel loops demonstrate normal wall thickness and caliber. No free fluid or a ir. Sigmoid diverticulosis without evidence of diverticulitis. Nodes and vessels: No retroperitoneal or mesenteric adenopathy by size criteria. Aorta and inferior vena cava are normal in size. Incidental note is made of the presence of left gonadal vein reflux w ith left abdominal associated varicosities. Miscellaneous: No ventral hernias. PELVIS: Genitourinary: Bladder wall thickness is normal. Miscellaneous: No inguinal hernias or adenopathy. Bones: No suspicious bony lesions. No acute vertebral body compression fractures. Mild chronic com pression of T8. Mild chronic compression of T11. IMPRESSION: 1. Sigmoid diverticulosis without evidence of diverticulitis. 2. Cholelithiasis. 3. 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 Reviewed by: Gentry Anne MD on 11/12/2020 4:15 PM PDT Approved by: Gentry Anne MD on 11/12/2020 4:15 PM PDT Station ID: [id number]
[2020-11-12] MEDS: KETOROLAC 15 MG/ML VIAL IVP STA (17:20)
[2020-11-12] MEDS: metroNIDAZOLE 250 MG TABLET PO STA (17:20)
[2020-11-12] MEDS: MORPHINE 2 MG/ML CARPUJECT IVP STA (17:20)
[2020-11-12 18:19] VITALS: BP 137/74
== END 2020-11-12 16:50 | disposition home or self-care (01) ==
LOC: EDUNIT# → ED 14:11
DX: R10.32 Left lower quadrant pain (principal); R19.7 Diarrhea, unspecified; I10 Essential (primary) hypertension; E11.9 Type 2 diabetes mellitus without complications; F17.200 Nicotine dependence, unspecified, uncomplicated; Z20.822 Contact with and (suspected) exposure to COVID-19
CPT/HCPCS: 36415; 74177; 80053; 83690; 85025; 87631; 96361; 96374; 99283; 99284; A9270; Q9967; 0202U

== ENCOUNTER 2021-01-23 08:00 | Outpatient (CLI) | payer MEDICARE, MEDICAID | END 2021-01-23 23:59 | disposition home or self-care (01) | LOC: LAB.N 08:00 | PROVIDERS: ATTEND Family Medicine | DX: R19.7 Diarrhea, unspecified (principal); R07.0 Pain in throat; Z20.822 Contact with and (suspected) exposure to COVID-19 | CPT/HCPCS: 87070; U0004 ==

== ENCOUNTER 2021-02-13 11:42 | Outpatient (CLI) | payer MEDICARE, MEDICAID | END 2021-02-13 11:43 | disposition EMS.NT | LOC: EMS 11:42 | DX: R11.2 Nausea with vomiting, unspecified (principal); R42 Dizziness and giddiness ==

== ENCOUNTER 2021-02-24 07:23 | Day surgery (SDC) | payer MEDICARE, MEDICAID ==
--- NOTE | 2021-02-24 07:51 | ANESTHESIA ---
Pre-Anesthesia VS, & Labs - Diagnosis hx colon polyps - Procedure colonoscopy Height: 5 ft 4 in - NPO >8 hours - Is Patient ?: No - Lab Results Lab results reviewed: Yes Home Medications and Allergies Home Medications: Ambulatory Orders Acetaminophen [Tylenol] 650 mg PO Q6H PRN 02/17/21 Metformin HCl [Fortamet] 1,000 mg PO BID 01/19/16 risperiDONE [RisperDAL] 4 mg PO DAILY 01/19/16 Acetaminophen [Tylenol] 650 mg PO Q6H PRN 02/17/21 Allergies/Adverse Reactions: Allergies Allergy/AdvReac Type Severity Reaction Status Date / Time Penicillins Allergy Unknown Verified 11/12/20 14:17 procaine [From Novocain] Allergy Unknown Verified 11/12/20 14:17 Anes History & Medical History - Anesthetic History Anesthesia Complications: reports: No previous complications Family history of Anesthesia Complications: Denies Family history of Malignant Hyperthermia: Denies - Medical History Cardiovascular: reports: None Pulmonary: reports: None Gastrointestinal: reports: Colon polyps Urinary: reports: Incontinence Musculoskeletal: reports: None Endocrine/Autoimmune: reports: Type 2 diabetes Blood Disorders: reports: None Skin: reports: None Smoking Status: Current every day smoker - Surgical History Eyes Ears Nose Throat (EENT): reports: Cataracts Gynecologic: reports: section Exam General: Alert Dental: Loose/Frag (several missing), Poor dentition Mouth Openin Fingerbreadth Neck Mobility: Normal Mallampati classification: II Thyromental Distance: 4-6 cm Respiratory: Lungs clear, Normal breath sounds, No respiratory distress Cardiovascular: Regular rate Neurological: Normal speech Mental/Cognitive Status: Alert/Oriented X3, Normal for patient Cognitive Status: Within normal limits Plan Anesthesia Type: Total IV Consent for Procedure(s) Verified and Reviewed: Yes Code Status: Attempt Resuscitation ASA classification: 2-Mild systemic disease Is this case an emergency?: No
[2021-02-24] MEDS ORDERED: LACTATED RINGERS 1,000 ML IV ONE ×2 (07:54→08:28)
[2021-02-24] MEDS ORDERED: PROPOFOL 500 MG/50 ML 500 MG/50 ML VIAL ONE (08:04)
[2021-02-24] MEDS ORDERED: LIDOCAINE-MPF 2% 5 ML VIAL ONE (08:04)
--- NOTE | 2021-02-24 08:57 | ANESTHESIA POST OP EVALUATION ---
Anesthesia Post Eval - Post Anesthesia Eval Vitals: Last Vital Signs Temp 37.1 C 02/24/21 08:27 Pulse 81 02/24/21 08:44 Resp 22 02/24/21 08:44 BP 123/65 02/24/21 08:44 Pulse Ox 98 02/24/21 08:44 CV Function Including HR & BP: Stable Pain Control: Satisfactory Nausea & Vomiting: Negative Mental Status: Baseline Respiratory Status: Airway Patent Hydration Status: Satisfactory Anesthesia Complications: None
[2021-02-24] MEDS ORDERED: ONDANSETRON 4 MG/2 ML VIAL ONE (09:07)
[2021-02-24 09:12] VITALS: BP 120/61
== END 2021-02-24 07:24 | disposition home or self-care (01) ==
LOC: SDS 07:23
PROVIDERS: ATTEND Surgery
PROC: 0DBL8ZZ Excision of Transverse Colon, Via Natural or Artificial Opening Endoscopic (ICD-10-PCS; principal; 2021-02-24 08:30)
DX: K62.5 Hemorrhage of anus and rectum (principal); R10.30 Lower abdominal pain, unspecified; D12.3 Benign neoplasm of transverse colon; K57.30 Diverticulosis of large intestine without perforation or abscess without bleeding; K64.8 Other hemorrhoids; K64.4 Residual hemorrhoidal skin tags; R06.09 Other forms of dyspnea; F20.9 Schizophrenia, unspecified; F17.200 Nicotine dependence, unspecified, uncomplicated
CPT/HCPCS: 45380; J7120